=== PATIENT | male | born 1970 | race Caucasian/White ===

== ENCOUNTER 2016-12-05 15:57 | Inpatient (IN) | payer MEDICAID ==
[2016-12-05] MEDS ORDERED: RX INFO: IV CONTRAST WAS GIVEN 1 EACH MISC MISCELLANE PRN (16:13)
[2016-12-05] MEDS ORDERED: ONDANSETRON 4 MG/2 ML VIAL IVP STA (16:13)
[2016-12-05] MEDS ORDERED: SODIUM CHLORIDE 0.9% 1,000 ML IV STA ×2 (16:13→18:04)
[2016-12-05] MEDS ORDERED: HYDROmorphone 1 MG/ML 1 ML SYRINGE IVP STA ×2 (16:13→17:57)
--- NOTE | 2016-12-05 16:17 | ED ---
Abdominal Pain HPI - General Source: patient, RN notes reviewed Mode of arrival: ambulatory Limitations: no limitations <Brenda Canlaes - Last Filed: 12/05/16 18:07> <Bubba Duvall - Last Filed: 12/05/16 18:19> - General Chief Complaint: Abdominal Pain Stated Complaint: Abd Pain Time Seen by Provider: 12/05/16 16:08 - History of Present Illness Initial Comments: 46 yo male presents to the ER with cc of left lower quadrant abdominal pain. Patient states it developed last night. He has been eating increased menses and popcorn. The patient states he hasn't had any nausea or vomiting. He denies any diarrhea he does have 2 bowel movements today. He denies any blood. Denies any history of this. Patient has had his appendix removed in the past but no other abdominal problems. The patient has not had a fever. Patient states she was concerned due to his continued pain but should be evaluated. Patient denies any recent fever, chills, shortness of breath, chest pain, back pain, nausea vomiting, numbness or tingling, dysuria or hematuria, constipation or diarrhea, headaches or visual changes, or any other current symptoms. (Brenda Canales) - Related Data Home Medications Medication Instructions Recorded Confirmed Acetaminophen Tab [Tylenol Tab] 1,500 mg PO Q6HR PRN 12/05/16 12/05/16 Cholecalciferol [Vitamin D3] 1,000 unit PO DAILY 12/05/16 12/05/16 Pantoprazole Sodium 40 mg PO DAILY 12/05/16 12/05/16 Allergies Allergy/AdvReac Type Severity Reaction Status Date / Time No Known Allergies Allergy Verified 12/05/16 16:21 Review of Systems ROS Other: All systems not noted in ROS Statement are negative. <Brenda Canales - Last Filed: 12/05/16 18:07> ROS Other: All systems not noted in ROS Statement are negative. <Bubba Duvall - Last Filed: 12/05/16 18:19> ROS Statement: Those systems with pertinent positive or pertinent negative responses have been documented in the HPI. Past Medical History Past Medical History: GERD/Reflux History of Any Multi-Drug Resistant Organisms: None Reported Past Surgical History: Appendectomy Additional Past Surgical History / Comment(s): (L) elbow surgery. bilateral carpel tunnel surgery. Past Psychological History: No Psychological Hx Reported Smoking Status: Never smoker Past Alcohol Use History: Occasional Past Drug Use History: None Reported <Brenda Canales - Last Filed: 12/05/16 18:07> General Exam Limitations: no limitations <Brenda Canales - Last Filed: 12/05/16 18:07> <Bubba Duvall - Last Filed: 12/05/16 18:19> - General Exam Comments Initial Comments: General: The patient is awake and alert, in no distress, and does not appear acutely ill. Eye: Pupils are equal, round and reactive to light, extra-ocular movements are intact; there is normal conjunctiva bilaterally. No signs of icterus. Ears, nose, mouth and throat: There are moist mucous membranes and no oral lesions. Neck: The neck is supple, there is no tenderness. Cardiovascular: There is a regular rate and rhythm. No murmur, rub or gallop is appreciated. Respiratory: Lungs are clear to auscultation, respirations are non-labored, breath sounds are equal. No wheezes, stridor, rales, or rhonchi. Gastrointestinal: Soft, non-distended, tender left lower quadrant of the abdomen without masses or organomegaly noted. There is rebound and guarding present. No CVA tenderness. Bowel sounds are unremarkable. Back: There is no tenderness to palpation in the midline. There is no obvious deformity. No rashes noted. Musculoskeletal: Normal ROM, no tenderness, There is no pedal edema. There is no calf tenderness or swelling. Sensation intact. Pulses equal bilaterally 2+. Neurological: CN II-XII intact, There are no obvious motor or sensory deficits. Coordination appears grossly intact. Speech is normal. Skin: Skin is warm and dry and no rashes or lesions are noted. Psychiatric: Cooperative, appropriate mood & affect, normal judgment. (Brenda Canales) Medical Decision Making - Lab Data Result diagrams: 12/05/16 16:30 12/05/16 16:30 - Radiology Data Radiology results: report reviewed, image reviewed <Brenda Canales - Last Filed: 12/05/16 18:07> - Lab Data Result diagrams: 12/05/16 16:30 12/05/16 16:30 <Bubba Duvall - Last Filed: 12/05/16 18:19> - Medical Decision Making 46-year-old male presents to emergency Department chief complaint of left lower quadrant abdominal pain. At this time patient's CAT scan lab work is reviewed. This time there is concern for localized infection in addition to a colitis. We'll start the patient on IV antibiotics and IV fluids. This time we will admit the patient. This discussed the patient is in agreement with the plan. ( Brenda Canales) I reviewed the patient's labs. 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 The CAT scan suggests ileocolic meningitis possible omental infarct and consideration with focal colitis. The case discussed with on-call surgeon Dr. Palacios. Patient be placed on Levaquin and Flagyl. With IV fluids, antibiotics, kept nothing by mouth . Dr. Duvall (Bubba Duvall) - Lab Data Lab Results 12/05/16 12/05/16 12/05/16 Range/Units 16:30 16:30 16:30 WBC 10.2 (3.8-10.6) k/uL RBC 5.59 (4.30-5.90) m/uL Hgb 16.0 (13.0-17.5) gm/dL Hct 48.5 (39.0-53.0) % MCV 86.7 (80.0-100.0) fL MCH 28.5 (25.0-35.0) pg MCHC 32.9 (31.0-37.0) g/dL RDW 13.7 (11.5-15.5) % Plt Count 341 (150-450) k/uL Neutrophils % 59 % Lymphocytes % 26 % Monocytes % 6 % Eosinophils % 5 % Basophils % 1 % Neutrophils # 6.1 (1.3-7.7) k/uL Lymphocytes # 2.7 (1.0-4.8) k/uL Monocytes # 0.7 (0-1.0) k/uL Eosinophils # 0.5 (0-0.7) k/uL Basophils # 0.1 (0-0.2) k/uL Sodium 139 (137-145) mmol/L Potassium 4.6 (3.5-5.1) mmol/L Chloride 106 (98-107) mmol/L Carbon Dioxide 21 L (22-30) mmol/L Anion Gap 12 mmol/L BUN 18 (9-20) mg/dL Creatinine 0.90 (0.66-1.25) mg/dL Est GFR (MDRD) Af Amer >60 (>60 ml/min/1.73 sqM) Est GFR (MDRD) Non-Af >60 (>60 ml/min/1.73 sqM) Glucose 98 (74-99) mg/dL Calcium 9.3 (8.4-10.2) mg/dL Total Bilirubin 0.7 (0.2-1.3) mg/dL AST 34 (17-59) U/L ALT 52 (21-72) U/L Alkaline Phosphatase 68 (38-126) U/L Total Protein 7.3 (6.3-8.2) g/dL Albumin 4.4 (3.5-5.0) g/dL Amylase 36 (30-110) U/L Lipase 145 (23-300) U/L Urine Color Light Yellow Urine Appearance Clear (Clear) Urine pH 5.5 (5.0-8.0) Ur Specific Froid 1.012 (1.001-1.035) Urine Protein Negative (Negative) Urine Glucose (UA) Negative (Negative) Urine Ketones Negative (Negative) Urine Blood Negative (Negative) Urine Nitrate Negative (Negative) Urine Bilirubin Negative (Negative) Urine Urobilinogen <2.0 (<2.0) mg/dL Ur Leukocyte Esterase Negative (Negative) Disposition Time of Disposition: 18:05 Decision Date: 12/05/16 Decision Time: 18:05 <Brenda Canales - Last Filed: 12/05/16 18:07> <Bubba Duvall - Last Filed: 12/05/16 18:19> Clinical Impression: Intractable left lower quadrant abdominal pain, Colitis Disposition: ADMITTED IP TO THIS [facility] Condition: Stable Referrals: Genevieve Kenyon MD [Primary Care Provider] - 1-2 days
[2016-12-05 16:46] LABS: Basophils # (A) 0.1 k/uL (0-0.2); Basophils % (A) 1 %; CH 29.2; CHCM 33.8; Eosinophils # (A) 0.5 k/uL (0-0.7); Eosinophils % (A) 5 %; HCT 48.5 % (39.0-53.0); HDW 2.76; Luc # (Auto) 0.22; Luc % (Auto) 2; Lymphocytes # (A) 2.7 k/uL (1.0-4.8); Lymphocytes % (A) 26 %; MCH 28.5 pg (25.0-35.0); MCHC 32.9 g/dL (31.0-37.0); MCV 86.7 fL (80.0-100.0); Mean Platelet Volume 6.3; Monocytes # (A) 0.7 k/uL (0-1.0); Monocytes % (A) 6 %; Neutrophils # (A) 6.1 k/uL (1.3-7.7); Neutrophils % (A) 59 %; RBC 5.59 m/uL (4.30-5.90); RDW 13.7 % (11.5-15.5); WBC 10.2 k/uL (3.8-10.6); WBC (Perox) 10.69
[2016-12-05 16:51] LABS: Appearance,Urine Clear (Clear); Bilirubin,Urine Negative (Negative); Glucose,Urine (UA) Negative (Negative); Ketones,Urine Negative (Negative); Leukocyte Esterase,Urine Negative (Negative); Nitrite,Urine Negative (Negative); PH, Urine 5.5 (5.0-8.0); Protein,Urine Negative (Negative); Specific Gravity,Urine 1.012 (1.001-1.035); UA Billing (MACRO vs. MICRO) CHEM; Urobilinogen,Urine <2.0 mg/dL (<2.0)
[2016-12-05 16:56] LABS: ALT 52 U/L (21-72); AST 34 U/L (17-59); Alkaline Phosphatase 68 U/L (38-126); Amylase 36 U/L (30-110); Anion Gap 12 mmol/L; Blood Urea Nitrogen 18 mg/dL (9-20); Calcium 9.3 mg/dL (8.4-10.2); Carbon Dioxide 21 mmol/L (22-30); Chloride 106 mmol/L (98-107); Glucose 98 mg/dL (74-99); Non-African American GFR(MDRD) >60 (>60 ml/min/1.73 sqM); Potassium 4.6 mmol/L (3.5-5.1); Sodium 139 mmol/L (137-145); Total Bilirubin 0.7 mg/dL (0.2-1.3); Total Protein 7.3 g/dL (6.3-8.2)
--- NOTE | 2016-12-05 17:52 | CT ---
EXAMINATION TYPE: CT abdomen pelvis w con DATE OF EXAM: 12/05/2016 5:22 PM COMPARISON: NONE HISTORY: 46-year-old male with left lower quadrant pain. TECHNIQUE: Contiguous axial scanning of the abdomen and pelvis following administration of 100 ml Omn ipaque 300 IV contrast. Delayed images through the kidneys and coronal/sagittal reconstructions perf ormed. CT DLP: 1088.5 mGycm Automated exposure control for dose reduction was used. FINDINGS: Heart is normal size without pericardial effusion. Lung bases clear without pleural effusion. No focal liver lesion or biliary ductal dilatation. Portal venous system is patent. Adrenal glands, gallbladder, kidneys, spleen, pancreas within normal limits. Slightly malrotated righ t kidney. Some fluid-filled small bowel loops in the left upper and midabdomen measuring up to 3.5 cm in calibe r, mildly dilated. There is no transition point. No free fluid or free air. Tiny fatty umbilical hernia. Numerous scattered nonenlarged mid and left abdominal mesenteric lymph nodes are probably reactive. There is focal moderate fat stranding anterior to the lower descending colon, axial image 51. No sign ificant colonic wall thickening or diverticular change is identified. Bladder partially urine distended. Prostate gland is enlarged at 5.3 cm wide. Patulous bilateral ingu inal canals. No pelvic lymphadenopathy seen. Bones: No osseous destructive process. IMPRESSION: 1. FOCAL INFLAMMATION IN THE LEFT MID ABDOMINAL FAT ANTERIOR TO THE LOWER DESCENDING COLON AND LATERA L TO SOME SMALL BOWEL LOOPS. THERE IS AN ADJACENT REGIONAL SMALL BOWEL ILEUS. 2. THE EXACT ETIOLOGY OF THE INFLAMMATION IS UNCERTAIN THERE IS NO CORRESPONDING COLONIC WALL THIC KENING OR DIVERTICULAR CHANGE. EPIPLOIC APPENDAGITIS AND OMENTAL INFARCT ARE OTHER CONSIDERATIONS IN ADDITION TO FOCAL COLITIS. 3. NO ABSCESS OR FREE AIR. 4. 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
[2016-12-05] MEDS ORDERED: NALOXONE 0.4 MG/ML 1 ML VIAL IV PRN (18:05)
[2016-12-05] MEDS ORDERED: ACETAMINOPHEN TAB 325 MG TAB PO PRN (18:05)
[2016-12-05] MEDS ORDERED: ONDANSETRON 4 MG/2 ML VIAL IVP PRN (18:05)
[2016-12-05] MEDS ORDERED: LEVOFLOXACIN 750MG-D5W PMX 750 MG in DEXTROSE/WATER 1 150ML.BAG IVPB STA (18:06)
[2016-12-05] MEDS ORDERED: metroNIDAZOLE-NS PMX 500 MG in SALINE 1 100ML.BAG IVPB STA (18:06)
[2016-12-05 19:49] VITALS: BMI 36.0
[2016-12-05] MEDS: HYDROmorphone 1 MG/ML 1 ML SYRINGE IV PRN ×2 (20:34→23:50)
[2016-12-05] MEDS: metroNIDAZOLE-NS PMX 500 MG in SALINE 1 100ML.BAG IVPB SCH (23:53)
[2016-12-06] MEDS ORDERED: METOCLOPRAMIDE 5 MG/ML 2 ML VIAL IVP PRN (05:35)
[2016-12-06 06:35] LABS: Basophils # (A) 0.1 k/uL (0-0.2); Basophils % (A) 1 %; CH 28.9; CHCM 32.9; Eosinophils # (A) 0.2 k/uL (0-0.7); Eosinophils % (A) 1 %; HCT 45.2 % (39.0-53.0); HGB 14.5 gm/dL (13.0-17.5); Luc # (Auto) 0.16; Luc % (Auto) 1; Lymphocytes # (A) 1.2 k/uL (1.0-4.8); Lymphocytes % (A) 10 %; MCH 28.4 pg (25.0-35.0); MCHC 32.2 g/dL (31.0-37.0); MCV 88.4 fL (80.0-100.0); Mean Platelet Volume 6.1; Monocytes # (A) 0.5 k/uL (0-1.0); Monocytes % (A) 4 %; Neutrophils # (A) 10.6 k/uL (1.3-7.7); Neutrophils % (A) 84 %; RBC 5.11 m/uL (4.30-5.90); RDW 13.8 % (11.5-15.5); WBC 12.7 k/uL (3.8-10.6); WBC (Perox) 13.11
[2016-12-06 07:00] LABS: ALT 44 U/L (21-72); AST 24 U/L (17-59); Alkaline Phosphatase 59 U/L (38-126); Anion Gap 11 mmol/L; Blood Urea Nitrogen 15 mg/dL (9-20); Calcium 8.7 mg/dL (8.4-10.2); Carbon Dioxide 21 mmol/L (22-30); Chloride 106 mmol/L (98-107); Glucose 113 mg/dL (74-99); Non-African American GFR(MDRD) >60 (>60 ml/min/1.73 sqM); Potassium 4.7 mmol/L (3.5-5.1); Sodium 138 mmol/L (137-145); Total Bilirubin 0.8 mg/dL (0.2-1.3); Total Protein 6.4 g/dL (6.3-8.2)
[2016-12-06] MEDS: metroNIDAZOLE-NS PMX 500 MG in SALINE 1 100ML.BAG IVPB SCH ×3 (08:54→23:43)
[2016-12-06] MEDS: PANTOPRAZOLE 40 MG TABLET PO SCH (08:54)
[2016-12-06] MEDS ORDERED: ONDANSETRON 4 MG/2 ML VIAL IVP PRN (08:58)
[2016-12-06 14:43] VITALS: RESP 16
--- NOTE | 2016-12-06 15:34 | P.HPIM ---
History of Present Illness H&P Date: 12/06/16 Chief Complaint: Abdominal pain 46-year-old gentleman who presented on the day of admission to the emergency room with a sudden onset of left lower quadrant abdominal pain. Patient stated developed the night before. He stated he had been eating popcorn. He did not have any nausea vomiting. Patient stated he had 2 loose stools. He stated there were no blood noted in the stool. Patient stated that he has had his appendix removed in the past. Patient gives no other significant past medical or surgical history. Patient states the pain was intolerable. He had not experienced prior pain. Patient stated he became concerned and admitted to the emergency room for further evaluation. Patient denied any fever chills. In the emergency room the white count was 10 afebrile in the emergency room a CAT scan of the abdomen and pelvis with contrast was obtained. It showed no abscess or free air it did show inflammation uncertain if there is corresponding : Wall thickening or diverticular changes colitis would be in the differential diagnosis Patient continues to report having tenderness to the right lower quadrant no nausea no vomiting no stooling Review of Systems Essentially unremarkable except as mentioned in the present illness Past Medical History Past Medical History: GERD/Reflux History of Any Multi-Drug Resistant Organisms: None Reported Past Surgical History: Appendectomy Additional Past Surgical History / Comment(s): (L) elbow surgery. bilateral carpel tunnel surgery. Past Anesthesia/Blood Transfusion Reactions: No Reported Reaction Past Psychological History: No Psychological Hx Reported Smoking Status: Never smoker Past Alcohol Use History: Occasional Past Drug Use History: None Reported - Past Family History Mother Additional Family Medical History / Comment(s): open heart surgery Father Family Medical History: Myocardial Infarction ([place]) Medications and Allergies Home Medications Medication Instructions Recorded Confirmed Type Acetaminophen Tab [Tylenol Tab] 1,500 mg PO Q6HR PRN 12/05/16 12/05/16 History Cholecalciferol [Vitamin D3] 1,000 unit PO DAILY 12/05/16 12/05/16 History Pantoprazole Sodium 40 mg PO DAILY 12/05/16 12/05/16 History Allergies Allergy/AdvReac Type Severity Reaction Status Date / Time No Known Allergies Allergy Verified 12/05/16 16:21 Physical Exam Vitals: Vital Signs Temp Pulse Pulse Resp BP BP Pulse Ox 12/06/16 14:43 97.9 F 74 16 120/78 96 12/06/16 07:00 98.3 F 75 18 127/71 97 12/06/16 04:16 78 16 129/77 95 12/06/16 01:00 98.1 F 79 16 113/59 98 12/05/16 19:59 97.7 F 65 16 142/89 97 12/05/16 18:33 98.3 F 64 18 145/67 97 12/05/16 18:20 64 18 145/67 97 Intake and Output 12/06/16 12/06/16 12/06/16 06:59 14:59 22:59 Intake Total 1200 1150 Balance 1200 1150 Intake: IV 1200 1150 Sodium Chloride 0.9% 1, 1200 1050 000 ml @ 150 mls/hr IV . Q6H40M STA Rx#:[id number] metroNIDAZOLE-NS PMX 500 100 mg In Saline 1 100ml.bag @ 100 mls/hr IVPB ONCE STA Rx#:[id number] Other: # Voids 2 GENERAL APPEARANCE: 46-year-old male patient is alert, oriented, in no acute distress. Resting in bed VITAL SIGNS: Reviewed HEENT: Head is normocephalic and atraumatic. Pupils are equal and reactive. The nares are patent. Oropharynx is clear without lesions. NECK: Supple without lymphadenopathy. Traches midline. HEART: S1, S2. Regular rate and rhythm. No murmur noted LUNGS: No crackles or wheezes are heard. Adequate air movement no shortness of breath ABDOMEN: Soft, slight tenderness left lower quadrant nondistended with good bowel sounds. No peritoneal signs. No palpable organomegaly or masses. EXTREMITIES: Normal skin color and turgor. No cyanosis, rash, ulceration, clubbing or edema. Radial pedal pulses are 2/4 bilaterally. NEUROLOGICAL: No focal deficits. Strength and sensation are grossly intact. Results CBC & Chem 7: 12/06/16 06:22 12/06/16 06:22 Labs: Abnormal Lab Results - Last 24 Hours (Table) 12/06/16 12/06/16 Range/Units 06:22 06:22 WBC 12.7 H (3.8-10.6) k/uL Neutrophils # 10.6 H (1.3-7.7) k/uL Carbon Dioxide 21 L (22-30) mmol/L Glucose 113 H (74-99) mg/dL Thrombosis Risk Factor Assmnt - Choose All That Apply Any of the Below Risk Factors Present?: Yes Each Factor Represents 1 point: Age 41-60 years, Obesity (BMI >25) Other Risk Factors: No Thrombosis Risk Factor Assessment Total Risk Factor Score: 2 Thrombosis Risk Factor Assessment Level: Low Risk Assessment and Plan Plan: Impression Present on admission abdominal pain nausea vomiting sudden onset suspect due to colitis Present on admission leukocytosis suspect reactive History of esophageal reflex disease Plan Repeat labs in the morning Clear liquid diet Toradol 30 IV every 6 [id number] Continue with Flagyl and Levaquin as ordered IV fluid at 75 an hour DVT and GI prophylaxis Further recommendations pending The above dictated assessment and findings were discussed with dr knapp . Impression and the plan of care have been dictated as directed. Sonja Sparrow nurse practitioner acting as a scribe for dr knapp
[2016-12-06] MEDS: CHOLECALCIFEROL 1,000 UNIT TAB PO SCH (16:24)
[2016-12-06] MEDS: KETOROLAC 30 MG/ML 1 ML VIAL IVP SCH ×3 (16:24→20:57)
[2016-12-06] MEDS: SODIUM CHLORIDE 0.9% 1,000 ML IV SCH ×2 (19:05→20:59)
[2016-12-06] MEDS: HYDROcodone/APAP 5-325MG 1 EACH TAB PO PRN (22:10)
[2016-12-06] MEDS ORDERED: LEVOFLOXACIN 750MG-D5W PMX 750 MG in DEXTROSE/WATER 1 150ML.BAG IVPB SCH (23:00)
[2016-12-07] MEDS: HYDROcodone/APAP 5-325MG 1 EACH TAB PO PRN (04:43)
[2016-12-07] MEDS: KETOROLAC 30 MG/ML 1 ML VIAL IVP SCH ×2 (05:06→11:43)
[2016-12-07 07:59] VITALS: BP 106/62; PULSE 60; TEMP 97.6
[2016-12-07] MEDS: CHOLECALCIFEROL 1,000 UNIT TAB PO SCH (08:21)
[2016-12-07] MEDS: PANTOPRAZOLE 40 MG TABLET PO SCH (08:21)
[2016-12-07] MEDS: metroNIDAZOLE-NS PMX 500 MG in SALINE 1 100ML.BAG IVPB SCH (08:21)
[2016-12-07 08:44] LABS: Basophils # (A) 0.1 k/uL (0-0.2); Basophils % (A) 1 %; CH 29.4; CHCM 33.5; Eosinophils # (A) 0.4 k/uL (0-0.7); Eosinophils % (A) 5 %; HCT 44.5 % (39.0-53.0); HDW 2.73; HGB 14.5 gm/dL (13.0-17.5); Luc # (Auto) 0.13; Luc % (Auto) 1; Lymphocytes # (A) 2.2 k/uL (1.0-4.8); Lymphocytes % (A) 25 %; MCH 28.6 pg (25.0-35.0); MCHC 32.5 g/dL (31.0-37.0); MCV 88.2 fL (80.0-100.0); Mean Platelet Volume 7.1; Monocytes # (A) 0.7 k/uL (0-1.0); Monocytes % (A) 8 %; Neutrophils # (A) 5.3 k/uL (1.3-7.7); Neutrophils % (A) 60 %; RBC 5.05 m/uL (4.30-5.90); RDW 13.7 % (11.5-15.5); WBC 8.8 k/uL (3.8-10.6); WBC (Perox) 8.69
[2016-12-07 09:02] LABS: ALT 43 U/L (21-72); AST 19 U/L (17-59); Alkaline Phosphatase 51 U/L (38-126); Anion Gap 7 mmol/L; Blood Urea Nitrogen 12 mg/dL (9-20); Carbon Dioxide 29 mmol/L (22-30); Chloride 105 mmol/L (98-107); Glucose 89 mg/dL (74-99); Non-African American GFR(MDRD) >60 (>60 ml/min/1.73 sqM); Potassium 4.6 mmol/L (3.5-5.1); Sodium 141 mmol/L (137-145); Total Bilirubin 0.7 mg/dL (0.2-1.3); Total Protein 6.1 g/dL (6.3-8.2)
[2016-12-07] MEDS: SODIUM CHLORIDE 0.9% 1,000 ML IV SCH (11:43)
--- NOTE | 2016-12-07 12:48 | P.DS ---
Providers Date of admission: 12/05/16 18:19 Expected date of discharge: 12/07/16 Attending physician: Ant Knapp Primary care physician: Genevieve [facility] Course: 46-year-old gentleman who presented on the day of admission to the emergency room with a sudden onset of left lower quadrant abdominal pain. Patient stated developed the night before. He stated he had been eating popcorn. He did not have any nausea vomiting. Patient stated he had 2 loose stools. He stated there were no blood noted in the stool. Patient stated that he has had his appendix removed in the past. Patient gives no other significant past medical or surgical history. Patient states the pain was intolerable. He had not experienced prior pain. Patient stated he became concerned and admitted to the emergency room for further evaluation. Patient denied any fever chills. In the emergency room the white count was 10 afebrile in the emergency room a CAT scan of the abdomen and pelvis with contrast was obtained. It showed no abscess or free air it did show inflammation uncertain if there is corresponding : Wall thickening or diverticular changes colitis would be in the differential diagnosis On admission continues to report having tenderness to the right lower quadrant no nausea no vomiting no stooling was started on IV hydration with bowel rest. Over the course of hospitalization the diet was able to be advanced on the day of discharge patient tolerated a full diet was felt to be stable and appropriate to proceed with discharge. The white count was down to 8.8. Electrolytes within normal limits AST and ALT were not elevated Impression Present on admission abdominal pain nausea vomiting sudden onset suspect due to colitis Present on admission leukocytosis suspect reactive History of esophageal reflex disease The above dictated assessment and findings were discussed with dr knapp Impression and the plan of care have been dictated as directed. Sonja Sparrow nurse practitioner acting as a scribe for dr knapp Patient Condition at Discharge: Stable Plan - Discharge Summary New Discharge Prescriptions: Levofloxacin [Levaquin] 500 mg PO DAILY #7 tab metroNIDAZOLE [Flagyl] 500 mg PO Q8HR #21 tab Discharge Medication List Acetaminophen Tab [Tylenol Tab] 1,500 mg PO Q6HR PRN 12/05/16 [History] Cholecalciferol [Vitamin D3] 1,000 unit PO DAILY 12/05/16 [History] Pantoprazole Sodium 40 mg PO DAILY 12/05/16 [History] Levofloxacin [Levaquin] 500 mg PO DAILY #7 tab 12/07/16 [Rx] metroNIDAZOLE [Flagyl] 500 mg PO Q8HR #21 tab 12/07/16 [Rx] Follow up Appointment(s)/Referral(s): Genevieve Kenyon MD [Primary Care Provider] - 1-2 days Ant Knapp MD [STAFF PHYSICIAN] - 1 Week Discharge Disposition: HOME SELF-CARE
== END 2016-12-07 14:16 | disposition home or self-care (01) | DRG 392 ==
LOC: EC 15:57 → 3SUR 18:19
PROVIDERS: ADMIT Surgery; ATTEND Surgery
DX: K52.9 Noninfective gastroenteritis and colitis, unspecified (principal); D72.829 Elevated white blood cell count, unspecified; K21.9 Gastro-esophageal reflux disease without esophagitis; Z82.49 Family history of ischemic heart disease and other diseases of the circulatory system; Z79.899 Other long term (current) drug therapy; Z90.49 Acquired absence of other specified parts of digestive tract
CPT/HCPCS: 36415; 74177; 80053; 81003; 82150; 83605; 83690; 85025; 87040; 96361; 96375; 96376; 99285

== ENCOUNTER → 2016-12-17 | Outpatient (CLI) | payer MEDICAID ==
[2016-12-17 16:38] LABS: CH 28.8; CHCM 33.1; HCT 46.3 % (39.0-53.0); HDW 2.69; MCH 28.2 pg (25.0-35.0); MCHC 32.3 g/dL (31.0-37.0); MCV 87.3 fL (80.0-100.0); Mean Platelet Volume 6.1; RDW 12.9 % (11.5-15.5); WBC 9.1 k/uL (3.8-10.6)
== END | disposition home or self-care (01) ==
LOC: LABWHC1 16:03
PROVIDERS: ATTEND Surgery
DX: K52.9 Noninfective gastroenteritis and colitis, unspecified (principal)
CPT/HCPCS: 36415; 85027

== ENCOUNTER → 2016-12-24 | Outpatient (CLI) | payer MEDICAID | END | disposition home or self-care (01) | LOC: LABWHC1 15:50 | PROVIDERS: ATTEND Surgery | DX: Z53.9 Procedure and treatment not carried out, unspecified reason (principal) ==

== ENCOUNTER → 2017-03-01 | Outpatient (CLI) | payer MEDICAID ==
--- NOTE | 2017-03-01 12:09 | ECHOF ---
Referral Reason:Sob [id number] MEASUREMENTS -------- HEIGHT: 162.6 cm WEIGHT: 95.7 kg BP: 136/83 RVIDd: 2.6 cm (< 3.3) IVSd: 1.2 cm (0.6 - 1.1) LVIDd: 4.5 cm (3.9 - 5.3) LVPWd: 1.2 cm (0.6 - 1.1) IVSs: 1.6 cm LVIDs: 3.3 cm LVPWs: 1.4 cm LA Diam: 3.5 cm (2.7 - 3.8) LAESV Index (A-L): 20.42 ml/m Ao Diam: 3.6 cm (2.0 - 3.7) AV Cusp: 2.6 cm (1.5 - 2.6) MV EXCURSION: 20.824 mm (> 18.000) MV EF SLOPE: 75 mm/s (70 - 150) EPSS: 0.5 cm MV E Donta: 0.58 m/s MV DecT: 217 ms MV A Donta: 0.41 m/s MV E/A Ratio: 1.43 FINDINGS -------- Sinus rhythm. This was a technically good study. The left ventricular size is normal. There is borderline concentric left ventricular hypertrophy. Overall left ventricular systolic function is normal with, an EF between 60 - 65 %. The right ventricle is normal in size. Normal LA size by volume 22+/-6 ml/m2. The right atrium is normal in size. There is mild aortic valve sclerosis. The mitral valve is normal. The tricuspid valve appears structurally normal. Trace/mild (physiologic) pulmonic regurgitation. The aortic root size is normal. Normal inferior vena cava with normal inspiratory collapse consistent with estimated right atrial pressure of 5 mmHg. The pericardium is normal. CONCLUSIONS -------- 1. Sinus rhythm. 2. The mitral valve is normal. 3. The tricuspid valve appears structurally normal. 4. Trace/mild (physiologic) pulmonic regurgitation. 5. The aortic root size is normal. 6. Normal inferior vena cava with normal inspiratory collapse consistent with estimated right atrial pressure of 5 mmHg. 7. The pericardium is normal. 8. This was a technically good study. 9. The left ventricular size is normal. 10. There is borderline concentric left ventricular hypertrophy. 11. Overall left ventricular systolic function is normal with, an EF between 60 - 65 %. 12. The right ventricle is normal in size. 13. Normal LA size by volume 22+/-6 ml/m2. 14. The right atrium is normal in size. 15. There is mild aortic valve sclerosis. [employer] MERCHANDISER: Adrianna Garcia RDCS
== END | disposition home or self-care (01) ==
LOC: RADNMMAIN 09:02
PROVIDERS: ATTEND Internal Medicine Clinical Cardiac Electrophysiology
DX: I37.1 Nonrheumatic pulmonary valve insufficiency (principal); I35.8 Other nonrheumatic aortic valve disorders
CPT/HCPCS: 93306

== ENCOUNTER → 2017-03-02 | Outpatient (CLI) | payer MEDICAID ==
--- NOTE | 2017-03-02 11:57 | EST ---
DATE OF SERVICE: 03/02/2017 AGE: 46Y SEX: M HT: 5'4" WT: 211 lbs. Protocol Antonio: X Other: Cardiolite Stress Stage: 4 Dur. of Exercise: 12:15 *Heart Rate Blood Pressure *Rest: 72 Rest: 130/97 * *Max. Achieved: 162 Maximum BP: 195/66 85% PMHR: 150 100% PMHR: 176 *METS: 12.3 INDICATIONS: Family history. MEDICATIONS: Prilosec. Baseline EKG revealed normal sinus rhythm without significant ST-T changes. Patient walked for 12 minutes 15 seconds, achieved a maximum heart rate of 162 beats per minute well above 85% of predicted maximum. Developed fatigue and some shortness of breath, but did not have any angina. There was no arrhythmia of significance, one isolated PVC was noted. EKG did not reveal any ST segment changes to indicate ischemia. IMPRESSION: 1. By EKG criteria, this is a negative stress test with excellent exercise capacity. 2. The nuclear scan results, which are more pertinent, will be reported by the radiologist.
--- NOTE | 2017-03-02 12:26 | NM ---
EXAMINATION TYPE: NM stress cardiolite complete DATE OF EXAM: 03/02/2017 11:07 AM COMPARISON: NONE HISTORY: Shortness of breath, family history coronary artery disease TECHNIQUE: After the intravenous administration of 10.5 mCi Tc 99m Sestamibi - Rest images obtained 45 minutes post injection. The patient exercised using a ENMANUEL protocol and 1 minute prior to peak exercise was injected with 27 mCi Tc 99m Sestamibi - Stress images obtained 10 minutes post injection . Patient achieved greater than 85% predicted maximal heart rate. FINDINGS: Targeted heart rate was achieved during performance of the study. Review of stress and rest SPECT eulalia ges demonstrates no distinct perfusion abnormality. Gated analysis shows normal wall motion with an estimated left ventricular ejection fraction of 66 %. IMPRESSION: No stress-induced left ventricular myocardial ischemia is evident.
== END ==
LOC: RADNMMAIN 08:23
PROVIDERS: ATTEND Internal Medicine Clinical Cardiac Electrophysiology
DX: R06.02 Shortness of breath (principal); E78.5 Hyperlipidemia, unspecified
CPT/HCPCS: 93017; 78452; A9500

== ENCOUNTER 2017-04-14 07:54 | Emergency (ER) | payer MEDICAID ==
[2017-04-14 07:58] VITALS: BP 154/81; PULSE 76; RESP 18; TEMP 97.6
--- NOTE | 2017-04-14 08:30 | ED ---
General Adult HPI - General Chief complaint: Back Pain/Injury Stated complaint: SCIATICA PAIN Time Seen by Provider: 04/14/17 08:11 Source: patient, family, RN notes reviewed Mode of arrival: wheelchair Limitations: no limitations - History of Present Illness Initial comments: Patient is a 46 -year-old male who presents emergency room today with a chief complaint of pain in the left buttocks radiate down the back of the leg is worse with certain movements. He does admit that pain started late last night. States that he has not tried any Tylenol or Motrin. He denies any bowel or bladder incontinence retention. Denies any saddle anesthesia. Denies any other complaints. Patient denies any recent fever, chills, shortness of breath, chest pain, back pain, abdominal pain, nausea or vomiting, dysuria or hematuria , constipation or diarrhea, headaches or visual changes, or any other complaints. - Related Data Home Medications Medication Instructions Recorded Confirmed Pantoprazole Sodium 40 mg PO DAILY 12/05/16 12/05/16 Previous Rx's Medication Instructions Recorded Cyclobenzaprine [Flexeril] 10 mg PO TID #20 tab 04/14/17 Dexamethasone 0.75 mg PO DIRECTED #12 tablet 04/14/17 Ibuprofen [Motrin] 800 mg PO Q8HR #30 tab 04/14/17 Allergies Allergy/AdvReac Type Severity Reaction Status Date / Time No Known Allergies Allergy Verified 04/14/17 08:42 Review of Systems ROS Statement: Those systems with pertinent positive or pertinent negative responses have been documented in the HPI. ROS Other: All systems not noted in ROS Statement are negative. Past Medical History Past Medical History: GERD/Reflux History of Any Multi-Drug Resistant Organisms: None Reported Past Surgical History: Appendectomy Additional Past Surgical History / Comment(s): (L) elbow surgery. bilateral carpel tunnel surgery. Past Anesthesia/Blood Transfusion Reactions: No Reported Reaction Past Psychological History: No Psychological Hx Reported Smoking Status: Never smoker Past Alcohol Use History: Occasional Past Drug Use History: None Reported - Past Family History Mother Additional Family Medical History / Comment(s): open heart surgery Father Family Medical History: Myocardial Infarction ([place]) General Exam - General Exam Comments Initial Comments: General: The patient is awake and alert, in no distress, and does not appear acutely ill. Eye: Pupils are equal, round and reactive to light, extra-ocular movements are intact. No nystagmus. There is normal conjunctiva bilaterally. No signs of icterus. Ears, nose, mouth and throat: There are moist mucous membranes and no oral lesions. Neck: The neck is supple, there is no tenderness or JVD. Cardiovascular: There is a regular rate and rhythm. No murmur, rub or gallop is appreciated. Respiratory: Lungs are clear to auscultation, respirations are non-labored, breath sounds are equal. No wheezes, stridor, rales, or rhonchi. Musculoskeletal: Normal ROM, no tenderness. Strength 5/5. Sensation intact. Pulses equal bilaterally 2+. Neurological: A&O x 3. CN II-XII intact, There are no obvious motor or sensory deficits. Coordination appears grossly intact. Speech is normal. Skin: Skin is warm and dry and no rashes or lesions are noted. Psychiatric: Cooperative, appropriate mood & affect, normal judgment. Limitations: no limitations Course Vital Signs 04/14/17 07:54 Temperature 97.6 F Pulse Rate 76 Respiratory 18 Rate Blood Pressure 154/81 O2 Sat by Pulse 97 Oximetry Medical Decision Making - Medical Decision Making Patient reexamined at this time shows no signs of distress more comfortable after Toradol shot. Will be discharged home with anti-inflammatories, muscle relaxer, steroids for symptoms. Advised that muscle relaxers may make him drowsy. Advised follow-up family doctor symptoms persist for further evaluation possible MRI. Advised return if symptoms increase or worsen or for any other concerns. Disposition Clinical Impression: Lumbar radiculopathy, acute Disposition: HOME SELF-CARE Condition: Good Instructions: Lumbar Radiculopathy (ED) Additional Instructions: Please use medication as discussed. Please be aware muscle relaxant may make you drowsy. Please follow-up with family doctor in the next 2 days of symptoms have not improved. Please return to emergency room if the symptoms increase or worsen or for any other concerns. Prescriptions: Cyclobenzaprine [Flexeril] 10 mg PO TID #20 tab Dexamethasone 0.75 mg PO DIRECTED #12 tablet Ibuprofen [Motrin] 800 mg PO Q8HR #30 tab Referrals: Genevieve Kenyon MD [Primary Care Provider] - 1-2 days Time of Disposition: 09:03
[2017-04-14] MEDS: KETOROLAC 60 MG/2 ML VIAL IM STA (08:39)
--- NOTE | 2017-04-14 08:53 | XR ---
EXAMINATION TYPE: XR lumbar spine 2 or 3V DATE OF EXAM: 04/14/2017 CLINICAL HISTORY: Low back pain radiating down left leg. TECHNIQUE: Frontal and lateral images of the lumbar spine are obtained. COMPARISON: MRI lumbar spine December 11, 2010. FINDINGS: There are 5 lumbar type vertebral bodies identified. The lumbar spine shows satisfactory alignment without evidence of acute fracture or dislocation. Vertebral body heights and disk space he ights are within normal limits. Minimal multilevel anterior spurring L3-L5 levels is present The over lying soft tissue appears unremarkable. IMPRESSION: No acute fracture or dislocation is seen in the lumbar spine. Minimal multilevel anterio r spurring.
== END 2017-04-14 09:20 | disposition home or self-care (01) ==
LOC: EC 07:54
DX: M54.16 Radiculopathy, lumbar region (principal); K21.9 Gastro-esophageal reflux disease without esophagitis; Z79.899 Other long term (current) drug therapy
CPT/HCPCS: 72100; 99283; 96372; J1885

== ENCOUNTER → 2017-04-30 | Outpatient (CLI) | payer MEDICAID ==
--- NOTE | 2017-04-30 11:52 | MR ---
EXAMINATION TYPE: MR lumbar spine wo con DATE OF EXAM: 04/30/2017 COMPARISON: NONE HISTORY: pain, nerve root and plexus disorder, left foot and leg numbness CONTRAST: 0 mL intravenous MultiHance. 12/11/2010 TECHNIQUE: Multiplanar, multisequence images of the lumbar spine were acquired. FINDINGS: Cord terminates at the L1 level. There is mild disc desiccation through the mid to lower l umbar spine. Mild narrowing of disc height may be present. L5-S1: There is a large 0.9 x 0.8 cm hypodensity within the left spinal canal. This is suspected to b e a sequestered disc or disc material extending from the L5-S1 level. Displacement of the residual th ecal sac is evident. There is likely some left S1 nerve root compression. Canal stenosis is present t hrough this level with sequestered disc. L4-L5: No significant disc bulge or disc herniation. No spinal canal stenosis. No foraminal stenosi s. . L3-L4: No significant disc bulge or disc herniation. No spinal canal stenosis. No foraminal stenosi s. . L2-L3: No significant disc bulge or disc herniation. No spinal canal stenosis. No foraminal stenosi s. . L1-L2: No significant disc bulge or disc herniation. No spinal canal stenosis. No foraminal stenosi s. . T12-L1: No significant disc bulge or disc herniation. No spinal canal stenosis. No foraminal stenos is. . IMPRESSION: 1. Interval development of a sequestered disc posterior to the L5 level likely from L5-S1 disc space. This has spinal canal stenosis and suspected left S1 nerve root compression. Correlate with radicula r symptoms.
== END | disposition home or self-care (01) ==
LOC: RADMRIMAIN 06:52
PROVIDERS: ATTEND Family Medicine
DX: M48.07 Spinal stenosis, lumbosacral region (principal); G54.9 Nerve root and plexus disorder, unspecified
CPT/HCPCS: 72148

== ENCOUNTER → 2017-05-02 | Outpatient (CLI) | payer MEDICAID ==
--- NOTE | 2017-05-02 17:47 | US ---
EXAMINATION TYPE: US abdomen limited DATE OF EXAM: 05/02/2017 COMPARISON: NONE CLINICAL HISTORY: M46.1 Sacroiliitis. Patient has painful, palpable lump at left buttock Hypoechoic, non-vascular area visualized at the area of concern measuring 0.9 x 1.1 x 1.0 cm. IMPRESSION: There is demonstration of a 10 mm hypoechoic shadowing area in the area of concern. The appearance is nonspecific. This could be a calcifying mass
== END | disposition home or self-care (01) ==
LOC: RADUSMAIN 17:01
PROVIDERS: ATTEND Family Medicine
DX: M25.9 Joint disorder, unspecified (principal); M46.1 Sacroiliitis, not elsewhere classified
CPT/HCPCS: 76705

== ENCOUNTER → 2017-05-24 | Outpatient (CLI) | payer MEDICAID ==
[2017-05-24 17:09] LABS: Basophils # (A) 0.1 k/uL (0-0.2); Basophils % (A) 1 %; CH 29.1; CHCM 33.9; Eosinophils # (A) 0.2 k/uL (0-0.7); Eosinophils % (A) 2 %; HCT 54.1 % (39.0-53.0); HDW 2.75; HGB 17.9 gm/dL (13.0-17.5); Luc # (Auto) 0.17; Luc % (Auto) 2; Lymphocytes # (A) 2.8 k/uL (1.0-4.8); Lymphocytes % (A) 26 %; MCH 28.5 pg (25.0-35.0); MCHC 33.1 g/dL (31.0-37.0); MCV 86.2 fL (80.0-100.0); Mean Platelet Volume 6.8; Monocytes # (A) 0.6 k/uL (0-1.0); Monocytes % (A) 6 %; Neutrophils # (A) 6.7 k/uL (1.3-7.7); Neutrophils % (A) 64 %; RBC 6.28 m/uL (4.30-5.90); RDW 15.4 % (11.5-15.5); WBC 10.6 k/uL (3.8-10.6); WBC (Perox) 10.41
[2017-05-24 17:19] LABS: INR 1.1 (<1.2)
[2017-05-24 17:20] LABS: ALT 60 U/L (21-72); AST 36 U/L (17-59); Alkaline Phosphatase 57 U/L (38-126); Anion Gap 11 mmol/L; Blood Urea Nitrogen 20 mg/dL (9-20); Calcium 10.2 mg/dL (8.4-10.2); Carbon Dioxide 27 mmol/L (22-30); Chloride 102 mmol/L (98-107); Glucose 82 mg/dL (74-99); Non-African American GFR(MDRD) >60 (>60 ml/min/1.73 sqM); Potassium 4.7 mmol/L (3.5-5.1); Sodium 140 mmol/L (137-145); Total Bilirubin 0.9 mg/dL (0.2-1.3); Total Protein 7.9 g/dL (6.3-8.2)
== END | disposition home or self-care (01) ==
LOC: LABWHC1 16:41
PROVIDERS: ATTEND Neurological Surgery
DX: Z01.812 Encounter for preprocedural laboratory examination (principal); D68.9 Coagulation defect, unspecified
CPT/HCPCS: 36415; 80053; 85025; 85610

== ENCOUNTER 2018-07-24 14:10 | Inpatient (IN) | payer MEDICAID ==
[2018-07-24] MEDS ORDERED: ONDANSETRON 4 MG/2 ML VIAL IVP STA (14:56)
--- NOTE | 2018-07-24 14:59 | ED ---
General Adult HPI - General Chief complaint: Abdominal Pain Stated complaint: abdominal pain Source: patient Mode of arrival: ambulatory Limitations: no limitations - History of Present Illness Initial comments: Dictation was produced using [employer] dictation software. please excuse any grammatical, word or spelling errors. Chief Complaint: 47-year-old male with past medical history of colitis presents with abdominal pain 2 days. History of Present Illness: She said his symptoms began yesterday. He states he does feel nauseated but doesn't have any vomiting. He feels as though his belly is much more distended than usual. Patient has regular bowel movement earlier today. States his pain is severe and diffuse. Chart review shows that patient was admitted in the past for diverticulitis. He does report that he has had twisted bowel. Patient unable to provide more detail. He does state that he is admitted for multiple days of antibiotics. Denies any constitutional symptoms. Patient had appendectomy as a teenager. The ROS documented in this emergency department record has been reviewed and confirmed by me. Those systems with pertinent positive or negative responses have been documented in the HPI. All other systems are other negative and/or noncontributory. - Related Data Home Medications Medication Instructions Recorded Confirmed Pantoprazole Sodium 40 mg PO DAILY 12/05/16 07/24/18 Pedi Multivit No.19/Folic Acid 400 mcg PO DAILY 07/24/18 07/24/18 [Children's Multi-Vit Gummies] Allergies Allergy/AdvReac Type Severity Reaction Status Date / Time No Known Allergies Allergy Verified 07/24/18 14:52 Review of Systems ROS Statement: Those systems with pertinent positive or pertinent negative responses have been documented in the HPI. ROS Other: All systems not noted in ROS Statement are negative. Past Medical History Past Medical History: GERD/Reflux History of Any Multi-Drug Resistant Organisms: None Reported Past Surgical History: Appendectomy Additional Past Surgical History / Comment(s): (L) elbow surgery. bilateral carpel tunnel surgery. Past Anesthesia/Blood Transfusion Reactions: No Reported Reaction Past Psychological History: No Psychological Hx Reported Smoking Status: Never smoker Past Alcohol Use History: Occasional Past Drug Use History: None Reported - Past Family History Mother Additional Family Medical History / Comment(s): open heart surgery Father Family Medical History: Myocardial Infarction ([place]) General Exam - General Exam Comments Initial Comments: PHYSICAL EXAM: General Impression: Alert and oriented x3, acute distress secondary to pain HEENT: Normocephalic atraumatic, extra-ocular movements intact, pupils equal and reactive to light bilaterally, mucous membranes moist. Cardiovascular: Heart regular rate and rhythm, S1&S2 audible, no murmurs, rubs or gallops Chest: Lungs clear to auscultation bilaterally, no rhonchi, no wheeze, no rales Abdomen: Tympanic to percussion, mildly distended, diffusely tender Musculoskeletal: Pulses present and equal in all extremities, no peripheral edema Motor: Power 5/5 bilaterally, no focal deficits noted Neurological: CN II-XII grossly intact, no focal motor or sensory deficits noted Skin: Intact with no visualized rashes Psych: Normal affect and mood Limitations: no limitations Course Vital Signs 07/24/18 14:38 Temperature 99.9 F H Pulse Rate 99 Respiratory 20 Rate Blood Pressure 153/67 O2 Sat by Pulse 97 Oximetry Medical Decision Making - Medical Decision Making ED course: 47-year-old male with chief complaint of abdominal pain. As upon arrival are within acceptable limits.Patient appeared to be in severe distress. Patient given morphine with improvement of symptoms. Laboratory evaluation showed leukocytosis of 12.3. Rest of CBC unremarkable. Coag panel unremarkable. Metabolic panel and lipase are negative. Given degree of symptoms abdominal and pelvis CT was obtained. There is findings to suggest small bowel obstruction with transition point in the right abdomen. Ultrasound was obtained showing cholelithiasis. Given clinical presentation and findings on physical examination of tympany is more likely that patient's symptoms are secondary to small all traction instead of vision is nothing by mouth with scheduled when necessary pain medications. There is some suspicion that patient 's symptoms represent acute cholecystitis given that ultrasound was limited. Patient started on antibiotics. EKG interpretation: Ventricular rate 93, normal sinus rhythm,. Interval 1:30, QRS 82, QTc 440. No OK prolongation, no QTC prolongation, no ST or T-wave changes noted. T-wave inversions noted at 3 and aVF. This EKG is unremarkable. Overall, this EKG is unremarkable - Lab Data Result diagrams: 07/24/18 15:06 07/24/18 15:06 Lab Results 07/24/18 07/24/18 07/24/18 Range/Units 15:06 15:06 15:06 WBC 12.3 H (3.8-10.6) k/uL RBC 5.85 (4.30-5.90) m/uL Hgb 16.4 (13.0-17.5) gm/dL Hct 50.1 (39.0-53.0) % MCV 85.7 (80.0-100.0) fL MCH 28.0 (25.0-35.0) pg MCHC 32.7 (31.0-37.0) g/dL RDW 13.9 (11.5-15.5) % Plt Count 315 (150-450) k/uL Neutrophils % 85 % Lymphocytes % 7 % Monocytes % 5 % Eosinophils % 2 % Basophils % 1 % Neutrophils # 10.4 H (1.3-7.7) k/uL Lymphocytes # 0.9 L (1.0-4.8) k/uL Monocytes # 0.6 (0-1.0) k/uL Eosinophils # 0.2 (0-0.7) k/uL Basophils # 0.1 (0-0.2) k/uL PT 9.7 (9.0-12.0) sec INR 1.0 (<1.2) APTT 24.6 (22.0-30.0) sec Sodium 139 (137-145) mmol/L Potassium 4.6 (3.5-5.1) mmol/L Chloride 104 (98-107) mmol/L Carbon Dioxide 25 (22-30) mmol/L Anion Gap 10 mmol/L BUN 16 (9-20) mg/dL Creatinine 1.15 (0.66-1.25) mg/dL Est GFR (CKD-EPI)AfAm 89 (>60 ml/min/1.73 sqM) Est GFR (CKD-EPI)NonAf 77 (>60 ml/min/1.73 sqM) Glucose 103 H (74-99) mg/dL Calcium 9.7 (8.4-10.2) mg/dL Total Bilirubin 1.1 (0.2-1.3) mg/dL AST 29 (17-59) U/L ALT 45 (21-72) U/L Alkaline Phosphatase 51 (38-126) U/L Total Protein 7.3 (6.3-8.2) g/dL Albumin 4.5 (3.5-5.0) g/dL Lipase 59 (23-300) U/L Disposition Clinical Impression: Abdominal pain Disposition: ADMITTED IP TO THIS HOSP Referrals: Genevieve Kenyon MD [Primary Care Provider] - 1-2 days Decision Time: 16:31
[2018-07-24] MEDS: MORPHINE SULFATE 4 MG/ML SYRINGE IVP PRN (15:10)
[2018-07-24 15:24] LABS: Basophils # (A) 0.1 k/uL (0-0.2); Basophils % (A) 1 %; Eosinophils # (A) 0.2 k/uL (0-0.7); Eosinophils % (A) 2 %; HCT 50.1 % (39.0-53.0); HGB 16.4 gm/dL (13.0-17.5); Lymphocytes # (A) 0.9 k/uL (1.0-4.8); Lymphocytes % (A) 7 %; MCHC 32.7 g/dL (31.0-37.0); MCV 85.7 fL (80.0-100.0); Mean Platelet Volume 6.1; Monocytes # (A) 0.6 k/uL (0-1.0); Monocytes % (A) 5 %; Neutrophils # (A) 10.4 k/uL (1.3-7.7); Neutrophils % (A) 85 %; Platelet Count 315 k/uL (150-450); RBC 5.85 m/uL (4.30-5.90); RDW 13.9 % (11.5-15.5); WBC 12.3 k/uL (3.8-10.6)
[2018-07-24 15:25] LABS: Albumin 4.5 g/dL (3.5-5.0); Calcium 9.7 mg/dL (8.4-10.2); Potassium 4.6 mmol/L (3.5-5.1); Total Bilirubin 1.1 mg/dL (0.2-1.3); Total Protein 7.3 g/dL (6.3-8.2)
[2018-07-24 15:26] LABS: Partial Thromboplastin Time 24.6 sec (22.0-30.0); Prothrombin Time 9.7 sec (9.0-12.0)
--- NOTE | 2018-07-24 15:52 | CT ---
EXAMINATION TYPE: CT abdomen pelvis w con DATE OF EXAM: 07/24/2018 COMPARISON: 12/05/2016 HISTORY: Bloating, belching, distention and pain in abdomen CT DLP: 1193.9 mGycm Automated exposure control for dose reduction was used. CONTRAST: CT scan of the abdomen pelvis is performed with IV Contrast, patient injected with 100 mL of Isovue 3 00. FINDINGS- LUNG BASES- No significant abnormality is appreciated. LIVER/GB- No gross abnormality is appreciated. PANCREAS- No gross abnormality is seen. SPLEEN- No gross abnormality is seen. ADRENALS- No gross abnormality is seen. KIDNEYS/BLADDER- no hydronephrosis nephrolithiasis or renal mass. BOWEL-there are dilated fluid-filled bowel loops which appear to represent small bowel. There appears to be a caliber change of bowel within the right abdomen. The appendix is not visualized with certai nty. LYMPH NODES- No greater than 1cm abdominal or pelvic lymph nodes areappreciated. OSSEOUS STRUCTURES- No significant abnormality is seen. OTHER- aorta of normal caliber. Tiny fat-containing umbilical hernia noted IMPRESSION- 1. There are dilated fluid-filled small bowel loops with an area of localized wall thickening involvi ng the ileum within the right abdomen. There appears to be a change in caliber of the bowel at this l evel. Findings could represent a transition point and possible small bowel obstruction. Correlate cli nically. Ileus or enteritis in the differential diagnosis. Mucosal lesion of the small bowel not excl uded. 2. Appendix not seen with certainty exam nondiagnostic for appendicitis.
--- NOTE | 2018-07-24 16:20 | US ---
EXAMINATION TYPE: US abdomen complete DATE OF EXAM: 07/24/2018 COMPARISON: CT 2018 CLINICAL HISTORY: abdominal pain. RUQ cramping, abdomen pain EXAM MEASUREMENTS: Liver Length: 16.1 cm Gallbladder Wall: 0.2 cm CBD: 0.5 cm Spleen: 11.2 cm Right Kidney: 12.1 x 5.1 x 4.3 cm Left Kidney: 11.3 x 6.2 x 5.5 cm Pancreas: visualized portions wnl, limited by overlying midline bowel gas Liver: wnl Gallbladder: 1.5cm non mobile echogenic shadowing focus Evidence for sonographic Watson's sign: yes CBD: visualized portions wnl, limited by overlying bowel gas Spleen: visualized portions wnl, limited by overlying bowel gas Right Kidney: wnl Left Kidney: wnl Upper IVC: wnl Abd Aorta: proximal portion wnl, mid and distal portion obscured by overlying midline bowel gas IMPRESSION: 1. Cholelithiasis
[2018-07-24] MEDS ORDERED: NALOXONE 0.4 MG/ML 1 ML VIAL IV PRN (16:24)
[2018-07-24] MEDS ORDERED: MORPHINE SULFATE 4 MG/ML SYRINGE IV PRN (16:24)
[2018-07-24] MEDS ORDERED: SODIUM CHLORIDE 0.9% 1,000 ML IV STA (16:27)
[2018-07-24 16:32] LABS: Appearance,Urine Clear (Clear); Bilirubin,Urine Negative (Negative); Blood,Urine Negative (Negative); Color,Urine Yellow; Glucose,Urine (UA) Negative (Negative); Ketones,Urine Negative (Negative); Leukocyte Esterase,Urine Negative (Negative); Nitrite,Urine Negative (Negative); PH, Urine 8.5 (5.0-8.0); Protein,Urine Trace (Negative); Urobilinogen,Urine <2.0 mg/dL (<2.0)
[2018-07-24] MEDS ORDERED: metroNIDAZOLE-NS PMX 500 MG in SALINE 1 100ML.BAG IVPB STA (17:00)
[2018-07-24 17:05] LABS: Specific Gravity,Urine >1.050 (1.001-1.035)
[2018-07-24] MEDS: ACETAMINOPHEN IV (For NPO) 1,000 MG in EMPTY BAG 1 BAG IVPB SCH ×2 (18:47→23:47)
[2018-07-24] MEDS: HEPARIN SODIUM,PORCINE 5,000 UNIT/ML 1 ML VIAL SQ SCH (23:47)
[2018-07-25] MEDS: ACETAMINOPHEN IV (For NPO) 1,000 MG in EMPTY BAG 1 BAG IVPB SCH ×2 (05:35→12:17)
[2018-07-25] MEDS: HEPARIN SODIUM,PORCINE 5,000 UNIT/ML 1 ML VIAL SQ SCH ×3 (07:47→23:54)
[2018-07-25] MEDS: PANTOPRAZOLE 40 MG/10 ML VIAL IV SCH (07:48)
--- NOTE | 2018-07-25 08:27 | XR ---
EXAMINATION TYPE: XR abdomen complete w decub DATE OF EXAM: 07/25/2018 COMPARISON: NONE HISTORY: Pain TECHNIQUE: Supine, upright, and left side down lateral decubitus views of the abdomen are obtained. FINDINGS: There is no evidence for pneumoperitoneum. The bowel gas pattern is nonspecific as there is air throughout nondilated small and large bowel. No mass effects are seen. Spina bifida occulta involving the sacrum noted. No unusual calcifications. IMPRESSION: Nonspecific abdomen
[2018-07-25] MEDS: metroNIDAZOLE-NS PMX 500 MG in SALINE 1 100ML.BAG IVPB SCH ×3 (08:50→23:54)
[2018-07-25] MEDS: SODIUM CHLORIDE 0.9% 1,000 ML IV SCH ×2 (08:52→16:33)
[2018-07-25 09:17] LABS: Basophils # (A) 0.1 k/uL (0-0.2); Basophils % (A) 1 %; Eosinophils # (A) 0.2 k/uL (0-0.7); Eosinophils % (A) 2 %; HCT 46.5 % (39.0-53.0); HGB 15.2 gm/dL (13.0-17.5); Lymphocytes # (A) 1.8 k/uL (1.0-4.8); Lymphocytes % (A) 25 %; MCH 28.3 pg (25.0-35.0); MCHC 32.7 g/dL (31.0-37.0); MCV 86.6 fL (80.0-100.0); Mean Platelet Volume 6.5; Monocytes # (A) 0.6 k/uL (0-1.0); Monocytes % (A) 8 %; Neutrophils # (A) 4.3 k/uL (1.3-7.7); Neutrophils % (A) 62 %; Platelet Count 276 k/uL (150-450); RBC 5.38 m/uL (4.30-5.90); RDW 13.9 % (11.5-15.5); WBC 7.1 k/uL (3.8-10.6)
[2018-07-25 09:23] LABS: ALT 39 U/L (21-72); AST 24 U/L (17-59); Albumin 3.6 g/dL (3.5-5.0); Alkaline Phosphatase 43 U/L (38-126); Anion Gap 7 mmol/L; Blood Urea Nitrogen 17 mg/dL (9-20); Calcium 8.7 mg/dL (8.4-10.2); Carbon Dioxide 25 mmol/L (22-30); Chloride 107 mmol/L (98-107); Glucose 89 mg/dL (74-99); Potassium 4.3 mmol/L (3.5-5.1); Sodium 139 mmol/L (137-145); Total Bilirubin 0.6 mg/dL (0.2-1.3); Total Protein 6.1 g/dL (6.3-8.2)
--- NOTE | 2018-07-25 09:27 | P.GSHP ---
<Sonja Sparrow - Last Filed: 07/25/18 09:13> History of Present Illness H&P Date: 07/25/18 This is a 47-year-old gentleman who presented with a chief complaint to the emergency room to be evaluated for nausea sensation with increase pain above the umbilical with abdominal bloating. Patient stated that the pain started 4- 5 weeks ago he noted that on the right upper quadrant under the rib he would get this intense pain the area would actually bulge out and resolve on its own. He noted that nothing would seem to aggravate it or relieve it. Patient stated the symptoms started yesterday before coming to the emergency room and did not get any better the pain seemed more intense. With increased abdominal bloating. Patient stated he had a bowel movement yesterday morning. Patient does give a past medical history of GERD Past surgical history open appendectomy as a teenager orthopedic procedures Currently at the time of my exam patient states abdominal bloating resolved with a noted improvement in abdominal pain less tender denying nausea or vomiting " Emergency room computed tomography scan of the abdomen pelvis reviewing the report indicates dilated fluid-filled small bowel loops with an area localized wall thickening involving the ileum within the right abdomen. Appears to be a changing caliber of the bowel at this level. Findings could represent transition point possible small bowel obstruction. Ultrasound of the abdomen revealing report cholelithiasis gallbladder 1.5 cm non mobile echogenic shadowing focus sonographic Watson sign positive abdominal x-ray this morning no evidence for pneumoperitoneum - Review of Systems Comment: Essentially unremarkable except as mentioned in the present illness Past Medical History Past Medical History: GERD/Reflux Additional Past Medical History / Comment(s): colitis, past ulcers History of Any Multi-Drug Resistant Organisms: None Reported Past Surgical History: Appendectomy, Back Surgery Additional Past Surgical History / Comment(s): (L) elbow surgery has metal in place. bilateral carpal tunnel surgery. Past Anesthesia/Blood Transfusion Reactions: No Reported Reaction Smoking Status: Never smoker - Past Family History Mother Additional Family Medical History / Comment(s): open heart surgery Father Family Medical History: Myocardial Infarction ([place]) Medications and Allergies Home Medications Medication Instructions Recorded Confirmed Type Pantoprazole Sodium 40 mg PO DAILY 12/05/16 07/24/18 History Pedi Multivit No.19/Folic Acid 400 mcg PO DAILY 07/24/18 07/24/18 History [Children's Multi-Vit Gummies] Allergies Allergy/AdvReac Type Severity Reaction Status Date / Time No Known Allergies Allergy Verified 07/24/18 14:52 Surgical - Exam Vital Signs Temp Pulse Resp BP Pulse Ox 99.9 F H 99 20 153/67 97 07/24/18 14:38 07/24/18 14:38 07/24/18 14:38 07/24/18 14:38 07/24/18 14:38 GENERAL APPEARANCE: 47-year-old male patient is alert, oriented x 3 in no acute distress. Currently states is a noted improvement in the abdominal pain VITAL SIGNS: Reviewed HEENT: Head is normocephalic and atraumatic. Pupils are equal and reactive. The nares are patent. Oropharynx is clear without lesions. NECK: Supple without lymphadenopathy. Traches midline. HEART: S1, S2. Regular rate and rhythm. No murmur noted denying chest pain LUNGS: No crackles or wheezes are heard. Adequate air movement bilaterally on room air ABDOMEN: Soft, mild tenderness right upper quadrant nondistended with good bowel sounds. No peritoneal signs. No palpable organomegaly or masses. Reports no nausea no vomiting states passing gas bowel movement the day before normal no blood noted EXTREMITIES: Normal skin color and turgor. No cyanosis, rash, ulceration, clubbing or edema. Radial pedal pulses are 2/4 bilaterally. NEUROLOGICAL: No focal deficits. Strength and sensation are grossly intact. Results - Labs 07/24/18 15:06 07/24/18 15:06 Abnormal Lab Results - Last 24 Hours (Table) 07/24/18 07/24/18 07/24/18 Range/Units 15:06 15:06 16:20 WBC 12.3 H (3.8-10.6) k/uL Neutrophils # 10.4 H (1.3-7.7) k/uL Lymphocytes # 0.9 L (1.0-4.8) k/uL Glucose 103 H (74-99) mg/dL Urine pH 8.5 H (5.0-8.0) Ur Specific [place] >1.050 H (1.001-1.035) Urine Protein Trace H (Negative) Diabetes panel 07/24/18 Range/Units 15:06 Sodium 139 (137-145) mmol/L Potassium 4.6 (3.5-5.1) mmol/L Chloride 104 (98-107) mmol/L Carbon Dioxide 25 (22-30) mmol/L BUN 16 (9-20) mg/dL Creatinine 1.15 (0.66-1.25) mg/dL Glucose 103 H (74-99) mg/dL Calcium 9.7 (8.4-10.2) mg/dL AST 29 (17-59) U/L ALT 45 (21-72) U/L Alkaline Phosphatase 51 (38-126) U/L Total Protein 7.3 (6.3-8.2) g/dL Albumin 4.5 (3.5-5.0) g/dL Calcium panel 07/24/18 Range/Units 15:06 Calcium 9.7 (8.4-10.2) mg/dL Albumin 4.5 (3.5-5.0) g/dL Pituitary panel 07/24/18 Range/Units 15:06 Sodium 139 (137-145) mmol/L Potassium 4.6 (3.5-5.1) mmol/L Chloride 104 (98-107) mmol/L Carbon Dioxide 25 (22-30) mmol/L BUN 16 (9-20) mg/dL Creatinine 1.15 (0.66-1.25) mg/dL Glucose 103 H (74-99) mg/dL Calcium 9.7 (8.4-10.2) mg/dL Adrenal panel 07/24/18 Range/Units 15:06 Sodium 139 (137-145) mmol/L Potassium 4.6 (3.5-5.1) mmol/L Chloride 104 (98-107) mmol/L Carbon Dioxide 25 (22-30) mmol/L BUN 16 (9-20) mg/dL Creatinine 1.15 (0.66-1.25) mg/dL Glucose 103 H (74-99) mg/dL Calcium 9.7 (8.4-10.2) mg/dL Total Bilirubin 1.1 (0.2-1.3) mg/dL AST 29 (17-59) U/L ALT 45 (21-72) U/L Alkaline Phosphatase 51 (38-126) U/L Total Protein 7.3 (6.3-8.2) g/dL Albumin 4.5 (3.5-5.0) g/dL Assessment and Plan Assessment: Impression Present on admission right upper quadrant abdominal pain with abdominal bloating possible due to small bowel obstruction with transition point right abdomen Ultrasound of the abdomen report indicate cholelithiasis Present on admission leukocytosis History of esophageal reflux disease CAT scan abdomen and pelvis report indicate possible small bowel obstruction with transition point right abdomen Remote surgical history open appendectomy as a teenager Plan Keep nothing by mouth IV fluid for hydration IV antibiotics as ordered Flagyl and Levaquin Pain control DVT and GI prophylaxis Further recommendations pending The above impression and plan of care have been discussed and directed by signing physician. Sonja Sparrow nurse practitioner acting as scribe for signing physician. <Carlos West - Last Filed: 07/25/18 13:10> History of Present Illness Chief Complaint: Right upper quadrant pain Surgical - Exam Vital Signs Temp Pulse Resp BP Pulse Ox 99.9 F H 99 20 153/67 97 07/24/18 14:38 07/24/18 14:38 07/24/18 14:38 07/24/18 14:38 07/24/18 14:38 Results - Labs 07/25/18 08:22 07/25/18 08:43 Abnormal Lab Results - Last 24 Hours (Table) 07/24/18 07/24/18 07/24/18 Range/Units 15:06 15:06 16:20 WBC 12.3 H (3.8-10.6) k/uL Neutrophils # 10.4 H (1.3-7.7) k/uL Lymphocytes # 0.9 L (1.0-4.8) k/uL Glucose 103 H (74-99) mg/dL Total Protein (6.3-8.2) g/dL Urine pH 8.5 H (5.0-8.0) Ur Specific [place] >1.050 H (1.001-1.035) Urine Protein Trace H (Negative) 07/25/18 Range/Units 08:43 WBC (3.8-10.6) k/uL Neutrophils # (1.3-7.7) k/uL Lymphocytes # (1.0-4.8) k/uL Glucose (74-99) mg/dL Total Protein 6.1 L (6.3-8.2) g/dL Urine pH (5.0-8.0) Ur Specific [place] (1.001-1.035) Urine Protein (Negative) Diabetes panel 07/24/18 07/25/18 Range/Units 15:06 08:43 Sodium 139 139 (137-145) mmol/L Potassium 4.6 4.3 (3.5-5.1) mmol/L Chloride 104 107 (98-107) mmol/L Carbon Dioxide 25 25 (22-30) mmol/L BUN 16 17 (9-20) mg/dL Creatinine 1.15 1.08 (0.66-1.25) mg/dL Glucose 103 H 89 (74-99) mg/dL Calcium 9.7 8.7 (8.4-10.2) mg/dL AST 29 24 (17-59) U/L ALT 45 39 (21-72) U/L Alkaline Phosphatase 51 43 (38-126) U/L Total Protein 7.3 6.1 L (6.3-8.2) g/dL Albumin 4.5 3.6 (3.5-5.0) g/dL Calcium panel 07/24/18 07/25/18 Range/Units 15:06 08:43 Calcium 9.7 8.7 (8.4-10.2) mg/dL Albumin 4.5 3.6 (3.5-5.0) g/dL Pituitary panel 07/24/18 07/25/18 Range/Units 15:06 08:43 Sodium 139 139 (137-145) mmol/L Potassium 4.6 4.3 (3.5-5.1) mmol/L Chloride 104 107 (98-107) mmol/L Carbon Dioxide 25 25 (22-30) mmol/L BUN 16 17 (9-20) mg/dL Creatinine 1.15 1.08 (0.66-1.25) mg/dL Glucose 103 H 89 (74-99) mg/dL Calcium 9.7 8.7 (8.4-10.2) mg/dL Adrenal panel 07/24/18 07/25/18 Range/Units 15:06 08:43 Sodium 139 139 (137-145) mmol/L Potassium 4.6 4.3 (3.5-5.1) mmol/L Chloride 104 107 (98-107) mmol/L Carbon Dioxide 25 25 (22-30) mmol/L BUN 16 17 (9-20) mg/dL Creatinine 1.15 1.08 (0.66-1.25) mg/dL Glucose 103 H 89 (74-99) mg/dL Calcium 9.7 8.7 (8.4-10.2) mg/dL Total Bilirubin 1.1 0.6 (0.2-1.3) mg/dL AST 29 24 (17-59) U/L ALT 45 39 (21-72) U/L Alkaline Phosphatase 51 43 (38-126) U/L Total Protein 7.3 6.1 L (6.3-8.2) g/dL Albumin 4.5 3.6 (3.5-5.0) g/dL Assessment and Plan Assessment: As above. Patient with 5-6 week history of right upper quadrant pain and swelling. These episodes come intermittently. On Tuesday he began experiencing a new pain involving bloating in the mid abdomen. CAT scan shows a possible irregularity in the mid small bowel. Suspect underlying chronic cholecystitis but would like to rule out small bowel pathology preoperatively. We'll order small bowel series at this time. If that study is normal would recommend proceeding with cholecystectomy either inpatient or outpatient. Risks of bleeding, infection, bile leak, bile duct injury, retained common bile duct stone, trocar injury, conversion to an open procedure, potential findings of other etiologies for her pain requiring additional procedures, hernia, anesthesia related complications were reviewed. The patient understands and wishes to proceed.
[2018-07-25] MEDS: LEVOFLOXACIN 500MG-D5W PMX 500 MG in DEXTROSE/WATER 1 100ML.BAG IVPB SCH (09:53)
[2018-07-25] MEDS ORDERED: HEPARIN SODIUM,PORCINE 5,000 UNIT/ML 1 ML VIAL SQ SCH (12:16)
--- NOTE | 2018-07-25 13:45 | P.CONS ---
History of Present Illness - Reason for Consult Consult date: 07/25/18 Medical consult Requesting physician: Carlos West - Chief Complaint Abdominal pain - History of Present Illness This is a 47-year-old male with a known history of GERD , infectious colitis and an appendectomy. Presents to the emergency room with complaints of abdominal pain on the right side with nausea. Pain has been intermittent over the last 4-5 weeks mostly in the right upper quadrant. Patient reports that the area in the right upper quadrant bulge out at time with pain. It feels like a muscle spasming. And results. This will happen multiple times throughout the day. Patient then started having lower abdominal cramping yesterday. The pain became severe. Patient has had nausea no actual vomiting. He is having small bowel movements. Denies any difficulty with urinating. Denies any chest pain shortness of breath. Denies any fever chills or sweats. Computed tomography scan of the abdomen showing dilated fluid-filled small bowel loops with an area of localized wall thickening involving the ileum within the right abdomen. There appears to be a change in caliber of the bowel at this level. Findings could represent a transition point and possible small bowel obstruction. Patient was admitted to surgical service for a possible small bowel obstruction. Also had an abdominal ultrasound showing cholelithiasis. White count 12.3 and temp 100.2. He was started on Levaquin and Flagyl. We have been consulted for medical management. Today patient reports that his abdominal distention has shown improvement. He has not required pain medication today. Patient is scheduled for small bowel follow- through Review of Systems Please refer to HPI otherwise unremarkable Past Medical History Past Medical History: GERD/Reflux Additional Past Medical History / Comment(s): colitis, past ulcers History of Any Multi-Drug Resistant Organisms: None Reported Past Surgical History: Appendectomy, Back Surgery Additional Past Surgical History / Comment(s): (L) elbow surgery has metal in place. bilateral carpal tunnel surgery. Past Anesthesia/Blood Transfusion Reactions: No Reported Reaction Smoking Status: Never smoker - Past Family History Mother Additional Family Medical History / Comment(s): open heart surgery Father Family Medical History: Myocardial Infarction ([place]) Medications and Allergies Home Medications Medication Instructions Recorded Confirmed Type Pantoprazole Sodium 40 mg PO DAILY 12/05/16 07/24/18 History Pedi Multivit No.19/Folic Acid 400 mcg PO DAILY 07/24/18 07/24/18 History [Children's Multi-Vit Gummies] Allergies Allergy/AdvReac Type Severity Reaction Status Date / Time No Known Allergies Allergy Verified 07/24/18 14:52 Physical Exam Vitals: Vital Signs Temp Pulse Pulse Resp BP BP Pulse Ox 07/25/18 06:14 98.7 F 67 18 111/69 97 07/24/18 23:00 98.4 F 59 L 20 101/66 98 07/24/18 20:30 87 18 07/24/18 17:00 100.2 F H 87 18 126/63 97 07/24/18 16:50 88 16 132/70 98 07/24/18 14:38 99.9 F H 99 20 153/67 97 Intake and Output 07/24/18 07/25/18 07/25/18 22:59 06:59 14:59 Other: Voiding Method Toilet # Voids 3 Head normocephalic Neck supple Lungs clear to auscultation bilaterally no wheezing or crackles Heart regular rate and rhythm S1-S2, no rub or gallop Abdomen is soft right upper quadrant and lower abdominal tenderness with palpation nondistended positive bowel sounds no hepatosplenomegaly Extremities no edema Neuro alert and orientated to 3 Results CBC & Chem 7: 07/25/18 08:22 07/25/18 08:43 Labs: Abnormal Lab Results - Last 24 Hours (Table) 07/24/18 07/24/18 07/24/18 Range/Units 15:06 15:06 16:20 WBC 12.3 H (3.8-10.6) k/uL Neutrophils # 10.4 H (1.3-7.7) k/uL Lymphocytes # 0.9 L (1.0-4.8) k/uL Glucose 103 H (74-99) mg/dL Total Protein (6.3-8.2) g/dL Urine pH 8.5 H (5.0-8.0) Ur Specific [place] >1.050 H (1.001-1.035) Urine Protein Trace H (Negative) 07/25/18 Range/Units 08:43 WBC (3.8-10.6) k/uL Neutrophils # (1.3-7.7) k/uL Lymphocytes # (1.0-4.8) k/uL Glucose (74-99) mg/dL Total Protein 6.1 L (6.3-8.2) g/dL Urine pH (5.0-8.0) Ur Specific [place] (1.001-1.035) Urine Protein (Negative) Assessment and Plan Assessment: 1. Right upper quadrant abdominal pain with possible small bowel obstruction noted on computed tomography scan. Patient noted to surgical service. They have ordered a small bowel follow-through. Patient currently on Levaquin and Flagyl empirically 2. Cholelithiasis noted on abdominal ultrasound. We'll await further surgical recommendations 3. Leukocytosis likely due to an abdominal infection. Improving with Levaquin and Flagyl 4. History of GERD GI prophylaxis Protonix and DVT prophylaxis subcu heparin Thank you for this Patient. We will continue to follow along during patient's hospitalization Time with Patient: Greater than 30 (Greater than 60% of the total time spent in counseling and coordination of care.I performed an examination of the patient and discussed their management with the physician Senior Product Designer. I have reviewed the Physician Senior Product Designer's notes and agree with the documented findings and plan of care)
--- NOTE | 2018-07-25 18:48 | FL ---
EXAMINATION TYPE: FL small bowel follow through, total 4 views were obtained DATE OF EXAM: 07/25/2018 CLINICAL HISTORY: Abdominal pain, small bowel mass TECHNIQUE: Department protocol. A single contrast small bowel follow through is performed utilizing 16 ounce oral EZpaque. FINDINGS: 0 minute, 30 minute, 80 minute, and 150 minute post oral contrast abdominal pelvic AP radi ographs were obtained. The small bowel study shows transit to the colon in less than 90 minutes. There is no bowel obstruction. There is a normal mucosal fold pattern throughout the small bowel. There is no evidence of any stricture or filling defect noted. No separation of bowel loops. No evidence of mass. The terminal ileum appears unremarkable. IMPRESSION: Negative examination.
[2018-07-26] MEDS: SODIUM CHLORIDE 0.9% 1,000 ML IV SCH ×3 (06:23→16:11)
[2018-07-26] MEDS: metroNIDAZOLE-NS PMX 500 MG in SALINE 1 100ML.BAG IVPB SCH ×2 (07:47→15:07)
[2018-07-26] MEDS: PANTOPRAZOLE 40 MG/10 ML VIAL IV SCH (07:48)
[2018-07-26] MEDS: HEPARIN SODIUM,PORCINE 5,000 UNIT/ML 1 ML VIAL SQ SCH ×2 (07:48→15:08)
[2018-07-26 09:06] LABS: Basophils % (A) 0 %; Eosinophils # (A) 0.2 k/uL (0-0.7); Eosinophils % (A) 2 %; HCT 47.4 % (39.0-53.0); HGB 15.4 gm/dL (13.0-17.5); Lymphocytes # (A) 1.8 k/uL (1.0-4.8); Lymphocytes % (A) 23 %; MCH 27.8 pg (25.0-35.0); MCHC 32.5 g/dL (31.0-37.0); MCV 85.4 fL (80.0-100.0); Mean Platelet Volume 6.3; Monocytes # (A) 0.5 k/uL (0-1.0); Monocytes % (A) 6 %; Neutrophils # (A) 5.2 k/uL (1.3-7.7); Neutrophils % (A) 67 %; Platelet Count 309 k/uL (150-450); RBC 5.55 m/uL (4.30-5.90); RDW 13.5 % (11.5-15.5); WBC 7.8 k/uL (3.8-10.6)
[2018-07-26] MEDS: LEVOFLOXACIN 500MG-D5W PMX 500 MG in DEXTROSE/WATER 1 100ML.BAG IVPB SCH (09:11)
[2018-07-26 09:24] LABS: ALT 40 U/L (21-72); AST 27 U/L (17-59); Albumin 3.7 g/dL (3.5-5.0); Alkaline Phosphatase 45 U/L (38-126); Anion Gap 10 mmol/L; Blood Urea Nitrogen 18 mg/dL (9-20); Calcium 9.3 mg/dL (8.4-10.2); Carbon Dioxide 25 mmol/L (22-30); Chloride 106 mmol/L (98-107); Glucose 78 mg/dL (74-99); Potassium 4.4 mmol/L (3.5-5.1); Sodium 141 mmol/L (137-145); Total Bilirubin 0.7 mg/dL (0.2-1.3); Total Protein 6.4 g/dL (6.3-8.2)
--- NOTE | 2018-07-26 12:22 | P.PN ---
Subjective Progress Note Date: 07/26/18 Principal diagnosis: Abdominal pain Patient had a small bowel series performed yesterday. No evidence of small bowel pathology was identified. Still having pain. Still feels bloated at times. Low-grade temperature noted. White blood cell count and liver enzymes normal. Objective - Vital Signs Vital signs: Vital Signs Temp 98.3 F 07/26/18 06:18 Pulse 74 07/26/18 06:18 Resp 18 07/26/18 06:18 BP 126/98 07/26/18 06:18 Pulse Ox 96 07/26/18 06:18 Intake & Output 07/25/18 07/26/18 07/26/18 18:59 06:59 18:59 Other: Voiding Method Toilet # Voids 3 2 - Exam Abdomen: Soft, mild distention, mild upper abdominal tenderness - Labs CBC & Chem 7: 07/26/18 08:22 07/26/18 08:22 Assessment and Plan (1) Cholecystitis Narrative/Plan: Patient's tenderness and pain has been centered mostly in the upper right upper quadrant. Yesterday small bowel series was normal. We'll proceed with cholecystectomy at this time. Risks of bleeding, infection, bile leak, bile duct injury, retained common bile duct stone, trocar injury, conversion to an open procedure, potential findings of other etiologies for her pain requiring additional procedures, hernia, anesthesia related complications were reviewed. The patient understands and wishes to proceed. Current Visit: Yes Status: Acute Code(s): K81.9 - CHOLECYSTITIS, UNSPECIFIED SNOMED Code(s): 94488710
--- NOTE | 2018-07-26 13:23 | P.PN ---
Subjective Progress Note Date: 07/26/18 This is a 47-year-old male with a known history of GERD , infectious colitis and an appendectomy. Presents to the emergency room with complaints of abdominal pain on the right side with nausea. Pain has been intermittent over the last 4-5 weeks mostly in the right upper quadrant. Patient reports that the area in the right upper quadrant bulge out at time with pain. It feels like a muscle spasming. And results. This will happen multiple times throughout the day. Patient then started having lower abdominal cramping yesterday. The pain became severe. Patient has had nausea no actual vomiting. He is having small bowel movements. Denies any difficulty with urinating. Denies any chest pain shortness of breath. Denies any fever chills or sweats. Computed tomography scan of the abdomen showing dilated fluid-filled small bowel loops with an area of localized wall thickening involving the ileum within the right abdomen. There appears to be a change in caliber of the bowel at this level. Findings could represent a transition point and possible small bowel obstruction. Patient was admitted to surgical service for a possible small bowel obstruction. Also had an abdominal ultrasound showing cholelithiasis. White count 12.3 and temp 100.2. He was started on Levaquin and Flagyl. We have been consulted for medical management. Today patient reports that his abdominal distention has shown improvement. He has not required pain medication today. Patient is scheduled for small bowel follow- through On 07/26/2018 patient is still complaining of some abdominal discomfort. Small bowel follow-through completed and was negative. Per surgical services while proceed with cholecystectomy at this time. Patient denies chest pain or shortness of breath. Patient denies nausea vomiting and diarrhea. Patient denies any urinary burning or frequency Objective - Vital Signs Vital signs: Vital Signs Temp 98.3 F 07/26/18 06:18 Pulse 74 07/26/18 06:18 Resp 18 07/26/18 06:18 BP 126/98 07/26/18 06:18 Pulse Ox 96 07/26/18 06:18 Intake & Output 07/25/18 07/26/18 07/26/18 18:59 06:59 18:59 Other: Voiding Method Toilet # Voids 3 2 - Exam Head normocephalic Neck supple Lungs clear to auscultation bilaterally no wheezing or crackles Heart regular rate and rhythm S1-S2, no rub or gallop Abdomen is soft nontender nondistended positive bowel sounds no hepatosplenomegaly Extremities no edema Neuro alert and orientated to 3 - Labs CBC & Chem 7: 07/26/18 08:22 07/26/18 08:22 Assessment and Plan Assessment: 1. Right upper quadrant abdominal pain with possible small bowel obstruction noted on computed tomography scan. Patient noted to surgical service. They have ordered a small bowel follow-through. Patient currently on Levaquin and Flagyl empirically. Small bowel follow-through negative. 2. Cholelithiasis noted on abdominal ultrasound. We'll await further surgical recommendations. Per surgical services will proceed with cholecystectomy at this time. 3. Leukocytosis likely due to an abdominal infection. Improving with Levaquin and Flagyl 4. History of GERD GI prophylaxis Protonix and DVT prophylaxis subcu heparin I performed an examination of the patient and discussed their management with the Nurse Practitioner. I have reviewed the Nurse Practitioner's notes and agree with the documented findings and plan of care
[2018-07-26] MEDS ORDERED: DEXAMETHASONE SOD PHOS (MDV) 100 MG/10 ML VIAL IVP ONE (17:06)
[2018-07-26] MEDS: ONDANSETRON 4 MG/2 ML VIAL IVP PRN ×2 (17:06→22:00)
[2018-07-26] MEDS ORDERED: IV FLUID CONTINUATION 1,000 ML IV ONE (17:06)
[2018-07-26] MEDS ORDERED: LIDOCAINE 1% INJ 10MG/ML (20 ML MDV) ONE (17:22)
[2018-07-26] MEDS ORDERED: MIDAZOLAM 2 MG/2 ML VIAL ONE (17:22)
[2018-07-26] MEDS ORDERED: SUCCINYLCHOLINE CHLORIDE 100 MG/5 ML SYR IV ONE (17:22)
[2018-07-26] MEDS ORDERED: PROPOFOL 10 MG/ML 20 ML VIAL IV ONE (17:22)
[2018-07-26] MEDS ORDERED: ROCURONIUM BROMIDE 10 MG/ML 10 ML VIAL IV ONE (17:22)
[2018-07-26] MEDS ORDERED: GLYCOPYRROLATE 0.2 MG/ML 2 ML VIAL ONE (17:22)
[2018-07-26] MEDS ORDERED: ePHEDrine SULFATE/0.9% NACL/PF 50 MG/5 ML SYRINGE IV ONE (17:22)
[2018-07-26] MEDS ORDERED: fentaNYL (PF) 50 MCG/ML 2 ML AMP ONE (17:22)
[2018-07-26] MEDS ORDERED: NEOSTIGMINE 1 MG/ML 10 ML VIAL ONE (17:22)
[2018-07-26] MEDS ORDERED: BUPIVACAIN-EPI 0.25%-1:200,000 30 ML VIAL SQ ONE ×2 (17:22)
[2018-07-26] MEDS ORDERED: MORPHINE SULFATE 10 MG/ML SYRINGE ONE (17:22)
[2018-07-26] MEDS ORDERED: LACTATED RINGERS 1,000 ML IV ONE (17:49)
[2018-07-26] MEDS ORDERED: HYDROmorphone 1 MG/ML 1 ML SYRINGE IVP ONE ×6 (18:41→20:08)
--- NOTE | 2018-07-26 18:50 | P.OP ---
Date of Procedure: 07/26/18 Procedure(s) Performed: PREOPERATIVE DIAGNOSIS: Acute cholecystitis POSTOPERATIVE DIAGNOSIS: Same PROCEDURE: Laparoscopic cholecystectomy SURGEON: Jenna EBL: Minimal see anesthesia record ANESTHESIA: Gen. COMPLICATIONS: None OPERATIVE PROCEDURE: The patient was brought and placed on the operating room table in the supine position. The patient was placed under general anesthesia at that time. The abdomen was prepped and draped in the usual sterile fashion. A small vertical supraumbilical incision was made. A small infraumbilical hernia was identified measuring approximately 1 cm or less. This was not repaired at this time given its location. The fascia was grasped with the Dennis forceps. The fascia was retracted anteriorly. The Veress needle was advanced into the peritoneal cavity. The saline drop test was normal. Insufflation took place up to 15 mmHg. A 5 mm optical trocar was advanced and the peritoneal cavity. 2 additional 5 mm trochars were placed in the right upper quadrant under direct visualization. A 10 mm trocar was advanced into the epigastric incision site. The abdominal cavity was inspected. The visualized liver stomach and colon appeared normal. There were adhesions in the right midabdomen and the right lower quadrant from previous appendectomy. There were a few prominent small bowel loops. For that reason an additional 5 mm trocar was placed in the lateral aspect of the left midabdomen. The small bowel was then run from the ligament of Treitz all the way to the ileocecal valve. No abnormalities were identified. No evidence of small bowel pathology or obstruction was seen. The gallbladder itself was somewhat distended and fairly large in size. The gallbladder was retracted superiorly and laterally. The peritoneum overlying the infundibulum was bluntly dissected. The patient's cystic duct was visualized. The junction between the cystic duct common and hepatic duct was identified. The cystic duct was then divided after placement of 3 10 mm clips on the patient's side and one on the specimen side. The cystic artery was identified and clipped as well. A small vessel was seen along the gallbladder fossa and clipped as well. The gallbladder was then removed from the liver bed using electrocautery. The gallbladder was then removed from the epigastric trocar site with an Endo Catch bag. The gallbladder fossa was irrigated with saline. There was no evidence of any bleeding or biliary drainage seen. The trochars were then removed. The fascia at the 10 millimeter site was closed using a Case-Mitchel 0 Vicryl stitch. The skin at all 4 sites was closed using a 4-0 Monocryl stitch. At the end of this procedure the sponge and needle counts were correct. DISPOSITION: Stable to the recovery room
[2018-07-26] MEDS ORDERED: KETOROLAC 30 MG/ML 1 ML VIAL IVP ONE (18:52)
[2018-07-26] MEDS ORDERED: MEPERIDINE 50 MG/ML SYRINGE IVP ONE ×3 (19:07→20:08)
[2018-07-26] MEDS: MORPHINE SULFATE 4 MG/ML SYRINGE IVP PRN (21:49)
[2018-07-26] MEDS: HYDROcodone/APAP 5-325MG 1 EACH TAB PO PRN (23:22)
[2018-07-27] MEDS: metroNIDAZOLE-NS PMX 500 MG in SALINE 1 100ML.BAG IVPB SCH ×2 (00:13→08:33)
[2018-07-27] MEDS: HEPARIN SODIUM,PORCINE 5,000 UNIT/ML 1 ML VIAL SQ SCH ×2 (00:13→08:40)
[2018-07-27] MEDS: MORPHINE SULFATE 4 MG/ML SYRINGE IVP PRN (01:23)
[2018-07-27 01:25] VITALS: RESP 18
[2018-07-27 01:32] VITALS: PULSE 65
[2018-07-27] MEDS: HYDROcodone/APAP 5-325MG 1 EACH TAB PO PRN ×2 (04:08→08:37)
[2018-07-27] MEDS: SODIUM CHLORIDE 0.9% 1,000 ML IV SCH ×2 (06:34→09:04)
[2018-07-27 07:25] VITALS: BP 94/48; TEMP 98.3
[2018-07-27 08:06] LABS: Basophils % (A) 0 %; Eosinophils % (A) 0 %; HGB 14.7 gm/dL (13.0-17.5); Lymphocytes # (A) 1.4 k/uL (1.0-4.8); Lymphocytes % (A) 13 %; MCH 27.4 pg (25.0-35.0); MCHC 31.3 g/dL (31.0-37.0); MCV 87.5 fL (80.0-100.0); Mean Platelet Volume 6.3; Monocytes # (A) 0.6 k/uL (0-1.0); Monocytes % (A) 6 %; Neutrophils # (A) 8.1 k/uL (1.3-7.7); Neutrophils % (A) 79 %; Platelet Count 324 k/uL (150-450); RBC 5.37 m/uL (4.30-5.90); RDW 13.8 % (11.5-15.5); WBC 10.2 k/uL (3.8-10.6)
[2018-07-27 08:22] LABS: ALT 38 U/L (21-72); AST 25 U/L (17-59); Albumin 3.5 g/dL (3.5-5.0); Alkaline Phosphatase 40 U/L (38-126); Anion Gap 8 mmol/L; Blood Urea Nitrogen 18 mg/dL (9-20); Calcium 9.1 mg/dL (8.4-10.2); Carbon Dioxide 24 mmol/L (22-30); Chloride 108 mmol/L (98-107); Glucose 91 mg/dL (74-99); Sodium 140 mmol/L (137-145); Total Bilirubin 0.5 mg/dL (0.2-1.3); Total Protein 6.1 g/dL (6.3-8.2)
[2018-07-27] MEDS: PANTOPRAZOLE 40 MG/10 ML VIAL IV SCH (08:34)
[2018-07-27] MEDS: LEVOFLOXACIN 500MG-D5W PMX 500 MG in DEXTROSE/WATER 1 100ML.BAG IVPB SCH (09:50)
--- NOTE | 2018-07-27 12:12 | P.DS ---
<Sonja Sparrow M - Last Filed: 07/27/18 12:00> Providers Date of admission: 07/24/18 16:24 Expected date of discharge: 07/27/18 Attending physician: Carlos West Consults: 07/24/18 16:25 Consult Physician Routine Consulting Provider: Scott Linares Consult Reason/Comments: medical consultation Do you want consulting provider notified?: Yes Primary care physician: [facility] Course: Pleasant 47-year-old male presented on the day of admission to the emergency room to be evaluated for chief complaint of developing pain on the right side with nausea with abdominal bloating. Patient stated that he initially developed pain about 5 weeks ago to the right upper quadrant. Patient states the pain would go to the rib he would get intense pain would actually cause cramping then resolve on its own patient stated there was nothing that seemed to make it worse or better. Patient states that he does have a history of GERD uses [id number] products. Patient stated he became concerned when the day of admission to the emergency room his abdomen actually bloated with intense pain. Patient has a past surgical history of an open appendectomy as a teenager otherwise no abdominal surgeries. Patient had an ultrasound of the abdomen did show cholelithiasis. No evidence of free air on the abdominal x -ray CAT scan of the abdomen pelvis in the emergency room was reviewed indicated dilated filled small bowel loops with an area localized causing wall thickening involving the ileum within the right abdomen. Appeared to be changing in caliber the bowel at this level. Possible small bowel obstruction to follow-up on the CAT scan of the abdomen pelvis a small bowel follow-through was obtained was negative exam Patient continue to have tenderness and pain mostly in the right upper quadrant. Patient elected to proceed with a lap cholecystectomy done on July 26 There were no postop events on the day of discharge patient was ambulatory on the unit passing gas no stool tolerating diet pain medication effective for pain control urinating no difficulty surgical incision sites dry afebrile white count 10.2 electrolytes within normal limits. Dr. West indicated no antibiotics indicated at this time Patient was felt to be clinically stable and appropriate proceed with discharge to home Impression discharge diagnosis Present on admission right upper quadrant abdominal pain with abdominal bloating possible due to small bowel obstruction with transition point right abdomen Ultrasound of the abdomen report indicate cholelithiasis Present on admission leukocytosis likely due to cholelithiasis History of esophageal reflux disease CAT scan abdomen and pelvis report indicate possible small bowel obstruction with transition point right abdomen Remote surgical history open appendectomy as a teenager Negative study for a small bowel follow-through Postop July 26 laparoscopic cholecystectomy for acute cholecystitis Obesity BMI 34 The above impression and plan of care have been discussed and directed by signing physician. Sonja Sparrow nurse practitioner acting as scribe for signing physician. Patient Condition at Discharge: Good Plan - Discharge Summary Discharge Rx Participant: Yes New Discharge Prescriptions: New Hydrocodone/Acetaminophen [[place] 5-325] 1 - 2 each PO Q4HR PRN #15 tab PRN Reason: pain No Action Pantoprazole Sodium 40 mg PO DAILY Pedi Multivit No.19/Folic Acid [Children's Multi-Vit Gummies] 400 mcg PO DAILY Discharge Medication List Pantoprazole Sodium 40 mg PO DAILY 12/05/16 [History] Pedi Multivit No.19/Folic Acid [Children's Multi-Vit Gummies] 400 mcg PO DAILY 07/24/18 [History] Hydrocodone/Acetaminophen [[place] 5-325] 1 - 2 each PO Q4HR PRN #15 tab 07/26/18 [Rx] Follow up Appointment(s)/Referral(s): Carlos West MD [Medical Doctor] - 08/02/18 2:45 pm Genevieve Kenyon MD [Primary Care Provider] - 07/31/18 9:15 am [facility] Patient Instructions/Handouts: *Surgery [facility] - Laparoscopic Cholecystectomy Discharge Instructions, Low Fat Diet (DC) Activity/Diet/Wound Care/Special Instructions: Low fat diet. Activity as tolerated. No tub bath for six weeks. Shower daily. No lifting over 10 pounds for the next 4 weeks. May use ice packs to surgical site. No driving while taking narcotic for pain. Discharge Disposition: HOME SELF-CARE <Carlos West - Last Filed: 07/27/18 15:32> - Discharge Diagnosis(es) (1) Cholecystitis Status: Acute Hospital Course: As above. Patient discharged earlier today prior to my arrival. He will follow -up with me in 1 week.
--- NOTE | 2018-07-27 13:17 | P.PN ---
Subjective Progress Note Date: 07/27/18 this is a 47-year-old male with a known history of GERD , infectious colitis and an appendectomy. Presents to the emergency room with complaints of abdominal pain on the right side with nausea. Pain has been intermittent over the last 4-5 weeks mostly in the right upper quadrant. Patient reports that the area in the right upper quadrant bulge out at time with pain. It feels like a muscle spasming. And results. This will happen multiple times throughout the day. Patient then started having lower abdominal cramping yesterday. The pain became severe. Patient has had nausea no actual vomiting. He is having small bowel movements. Denies any difficulty with urinating. Denies any chest pain shortness of breath. Denies any fever chills or sweats. Computed tomography scan of the abdomen showing dilated fluid-filled small bowel loops with an area of localized wall thickening involving the ileum within the right abdomen. There appears to be a change in caliber of the bowel at this level. Findings could represent a transition point and possible small bowel obstruction. Patient was admitted to surgical service for a possible small bowel obstruction. Also had an abdominal ultrasound showing cholelithiasis. White count 12.3 and temp 100.2. He was started on Levaquin and Flagyl. We have been consulted for medical management. Today patient reports that his abdominal distention has shown improvement. He has not required pain medication today. Patient is scheduled for small bowel follow- through On 07/26/2018 patient is still complaining of some abdominal discomfort. Small bowel follow-through completed and was negative. Per surgical services while proceed with cholecystectomy at this time. Patient denies chest pain or shortness of breath. Patient denies nausea vomiting and diarrhea. Patient denies any urinary burning or frequency 07/27/2018 status post left scalp cholecystectomy. Patient is tolerating diet. Pain is controlled. Surgical service is planning discharge today. They're not recommending antibiotics. White count normal. Patient is afebrile. Objective - Vital Signs Vital signs: Vital Signs Temp 98.3 F 07/27/18 07:00 Pulse 65 07/27/18 07:00 Resp 18 07/27/18 07:00 BP 94/48 07/27/18 07:00 Pulse Ox 95 07/27/18 07:00 Intake & Output 07/26/18 07/27/18 07/27/18 18:59 06:59 18:59 Intake Total 1500 700 420 Output Total 15 Balance 1485 700 420 Weight 90.718 kg Intake: IV 1500 250 Intake, IV Titration 300 Amount Levofloxacin 500Mg-D5w 100 Pmx 500 mg In Dextrose/ Water 1 100ml.bag @ 100 mls/hr IVPB Q24H ANG[facility] Rx#: [id number] Sodium Chloride 0.9% 1, 100 000 ml @ 125 mls/hr IV . Q8H ANG[facility] Rx#:[id number] metroNIDAZOLE-NS PMX 500 100 mg In Saline 1 100ml.bag @ 100 mls/hr IVPB Q8HR ANGEL[facility] Rx#:[id number] Oral 450 120 Output: Estimated Blood Loss 15 Other: Voiding Method Toilet Toilet # Voids 2 2 2 - Exam Head normocephalic Neck supple Lungs clear to auscultation bilaterally no wheezing or crackles Heart regular rate and rhythm S1-S2, no rub or gallop Abdomen is soft tender incision sites dressing clean dry and intact nondistended positive bowel sounds no hepatosplenomegaly Extremities no edema Neuro alert and orientated to 3 - Labs CBC & Chem 7: 07/27/18 07:08 07/27/18 07:08 Labs: Abnormal Lab Results - Last 24 Hours (Table) 07/27/18 07/27/18 Range/Units 07:08 07:08 Neutrophils # 8.1 H (1.3-7.7) k/uL Chloride 108 H (98-107) mmol/L Total Protein 6.1 L (6.3-8.2) g/dL Assessment and Plan Assessment: 1. Abdominal pain likely multifactorial due to a small bowel obstruction as well as an acute cholecystitis 2. Acute cholecystitis status post laparoscopic cholecystectomy. No antibiotics per surgical service at time of discharge 3. Leukocytosis likely secondary to acute cholecystitis now resolved. 4. History of GERD GI prophylaxis Protonix and DVT prophylaxis subcu heparin Patient is medically stable for discharge. Have him follow up with his PCP in 1 week. I performed an examination of the patient and discussed their management with the physician Consolidator. I have reviewed the Physician Consolidator's notes and agree with the documented findings and plan of care
== END 2018-07-27 12:52 | disposition home or self-care (01) | DRG 418 ==
LOC: EC 14:10 → 4MS4W 16:24
PROVIDERS: ADMIT Surgery; ATTEND Surgery
PROC: 0FT44ZZ Resection of Gallbladder, Percutaneous Endoscopic Approach (ICD-10-PCS; principal; 2018-07-26 07:30)
DX: K80.00 Calculus of gallbladder with acute cholecystitis without obstruction (principal); K56.609 Unspecified intestinal obstruction, unspecified as to partial versus complete obstruction; E66.9 Obesity, unspecified; K21.9 Gastro-esophageal reflux disease without esophagitis; Z68.34 Body mass index [BMI] 34.0-34.9, adult; Z82.49 Family history of ischemic heart disease and other diseases of the circulatory system; Z79.899 Other long term (current) drug therapy; K42.9 Umbilical hernia without obstruction or gangrene
CPT/HCPCS: 36415; 74021; 74177; 74250; 76700; 80053; 81003; 83690; 85025; 85610; 85730; 88304; 93005; 96361; 96374; 96375; 96376; 99285

== ENCOUNTER 2018-08-16 21:07 | Emergency (ER) | payer MEDICAID ==
[2018-08-16 21:19] VITALS: BP 130/87; PULSE 81; RESP 16; TEMP 97.8
--- NOTE | 2018-08-16 22:03 | XR ---
EXAMINATION TYPE: XR calcaneus 2V RT DATE OF EXAM: 08/16/2018 COMPARISON: NONE HISTORY: Fell from a ladder. Heel pain TECHNIQUE: 3 views FINDINGS: There is a small plantar calcaneal spur. I see no fracture. Subtalar joint appears normal. IMPRESSION: No fracture of the calcaneus seen.
--- NOTE | 2018-08-16 22:24 | ED ---
Lower Extremity Injury HPI - General Chief Complaint: Extremity Injury, Lower Stated Complaint: Foot injury/fell from 4ft ladder Time Seen by Provider: 08/16/18 21:38 Source: patient, RN notes reviewed Mode of arrival: ambulatory Limitations: no limitations - History of Present Illness Initial Comments: 47-year-old male presents emergency Department chief complaint of right heel pain. Patient states he fell off foot ladder on Tuesday. Patient states that he landed directly on his calcaneus he states that his foot was caught in the wrong on the latter states that his shoe came off and then fell to the ground. He had no other injuries denies any head injury, back injury. He states that he cannot put any pressure on his right heel - Related Data Home Medications Medication Instructions Recorded Confirmed Pantoprazole Sodium 40 mg PO DAILY 12/05/16 07/24/18 Pedi Multivit No.19/Folic Acid 400 mcg PO DAILY 07/24/18 07/24/18 [Children's Multi-Vit Gummies] Previous Rx's Medication Instructions Recorded Hydrocodone/Acetaminophen [[place] 1 - 2 each PO Q4HR PRN #15 tab 07/26/18 5-325] Allergies Allergy/AdvReac Type Severity Reaction Status Date / Time No Known Allergies Allergy Verified 08/16/18 21:18 Review of Systems ROS Statement: Those systems with pertinent positive or pertinent negative responses have been documented in the HPI. ROS Other: All systems not noted in ROS Statement are negative. Past Medical History Past Medical History: GERD/Reflux Additional Past Medical History / Comment(s): colitis, past ulcers History of Any Multi-Drug Resistant Organisms: None Reported Past Surgical History: Appendectomy, Back Surgery Additional Past Surgical History / Comment(s): (L) elbow surgery has metal in place. bilateral carpal tunnel surgery. Past Anesthesia/Blood Transfusion Reactions: No Reported Reaction Past Psychological History: No Psychological Hx Reported Smoking Status: Never smoker - Past Family History Mother Additional Family Medical History / Comment(s): open heart surgery Father Family Medical History: Myocardial Infarction ([place]) General Exam Limitations: no limitations General appearance: alert, in no apparent distress Head exam: Present: atraumatic, normocephalic, normal inspection Respiratory exam: Present: normal lung sounds bilaterally. Absent: respiratory distress, wheezes, rales, rhonchi, stridor Cardiovascular Exam: Present: regular rate, normal rhythm, normal heart sounds. Absent: systolic murmur, diastolic murmur, rubs, gallop, clicks Extremities exam: Present: other (Right heel there is moderate tenderness with palpation which is pinpoint there is no metatarsal tenderness there is no malleoli tenderness.) Back exam: Present: full ROM. Absent: tenderness, vertebral tenderness Course Vital Signs 08/16/18 21:15 Temperature 97.8 F Pulse Rate 81 Respiratory 16 Rate Blood Pressure 130/87 O2 Sat by Pulse 97 Oximetry Medical Decision Making - Medical Decision Making 47-year-old male present emergency department for right heel pain. X-ray and CT were obtained no acute fracture. Patient will be discharged return parameters were discussed. Disposition Clinical Impression: Fall, Contusion of right heel Disposition: HOME SELF-CARE Condition: Stable Instructions: Foot Contusion (ED) Additional Instructions: Please return to the Emergency Department if symptoms worsen or any other concerns. Is patient prescribed a controlled substance at d/c from ED?: No Referrals: Genevieve Kenyon MD [Primary Care Provider] - 1-2 days Time of Disposition: 23:00
--- NOTE | 2018-08-16 22:53 | CT ---
EXAMINATION TYPE: CT foot RT wo con DATE OF EXAM: 08/16/2018 COMPARISON: None HISTORY: right foot pain following fall from ladder CT DLP: 130.1 mGycm Automated exposure control for dose reduction was used. FINDINGS: Multiple axial sections were obtained from the distal tibia to the bottom of the foot no contrast. There is accessory ossicle in the posterior talus. The talus appears intact. The calcaneus appears in tact. There is small plantar calcaneal spur. The metatarsals appear intact. The tarsal bones appear i ntact. There is no evidence of a soft tissue mass. There is no pathologic fluid collection. There are small degenerative cysts in the distal first metatarsal. IMPRESSION: SMALL PLANTAR CALCANEAL SPUR. NO FRACTURE SEEN.
== END 2018-08-16 23:12 | disposition home or self-care (01) ==
LOC: EC 21:07
DX: S90.31XA Contusion of right foot, initial encounter (principal); K21.9 Gastro-esophageal reflux disease without esophagitis; Z79.899 Other long term (current) drug therapy; W11.XXXA Fall on and from ladder, initial encounter; Y92.69 Other specified industrial and construction area as the place of occurrence of the external cause
CPT/HCPCS: 99284

== ENCOUNTER → 2019-04-06 | Outpatient (CLI) | payer MEDICAID ==
--- NOTE | 2019-04-09 10:33 | US ---
EXAMINATION TYPE: US axilla RT, US axilla LT DATE OF EXAM: 04/06/2019 COMPARISON: None CLINICAL HISTORY: 48-year-old male R22.9 mass and lump. Prominent anterior skin/palpable area in mak ateral axilla, right side greater than left axilla, noted x 2 weeks; exercises frequently TECHNIQUE: Targeted ultrasound examination along the anterior axilla on both sides at the site of pat ient directed concern. FINDINGS: Right: No solid mass seen at anterior skin area of concern. Possible more prominent muscle is noted on right side compared to left. Deep right axillary nodes are noted inferior to right palpable with larger node = 1.3 x 1.0 x 0.9cm. Left: Possible prominent muscle is noted at patient's area of concern at anterior left axilla. IMPRESSION: 1. Some prominent tissue is noted anteriorly along the axilla on both sides at the site of patient's concern, right greater than left. Overall echogenicity seems to resemble musculature. 2. No discrete fluid collection is identified. However, if there is persistent concern for pectoralis major tear, patient can be referred to a site which routinely performs MSK ultrasound. Alternatively , MRI of the pectoralis can be considered.
== END | disposition home or self-care (01) ==
LOC: RADUSWWP 10:43
PROVIDERS: ATTEND Family Medicine
DX: R22.9 Localized swelling, mass and lump, unspecified (principal)

== ENCOUNTER → 2019-05-08 | Outpatient (CLI) | payer MEDICAID ==
--- NOTE | 2019-05-09 13:29 | MR ---
EXAMINATION TYPE: MR chest wo con DATE OF EXAM: 05/08/2019 COMPARISON: Ultrasound 04/06/2019 HISTORY: Pain and swelling mak armpits Standard multiplanar, multisequence MRI departmental protocol Multiplanar, multisequence images of the chest were acquired. FINDINGS: Exam limited by motion artifact Visualized lungs are clear and the heart size is prominent. Visualized portions of liver is homogeneo us signal. Pectoral muscles appear symmetric in size. No contrast was administered. Assessment for mass limited. No finding seen to correspond to the ultrasound abnormality. Shotty lymph nodes in the axilla incide ntally noted. IMPRESSION: Severely limited exam demonstrates no definite no abnormality concordant with the sonographic finding s. The exam was limited due to motion and artifact. Follow-up CT of the chest could be obtained with contrast as clinically warranted given the limitation of the exam or Followup ultrasound if interval growth. No definite masses seen on today's exam.
== END | disposition home or self-care (01) ==
LOC: RADMRIMAIN 09:27
PROVIDERS: ATTEND Family Medicine
DX: S29.011A Strain of muscle and tendon of front wall of thorax, initial encounter (principal)
CPT/HCPCS: 71550

== ENCOUNTER → 2019-11-24 | Outpatient (CLI) | payer MEDICAID ==
[2019-11-24 10:17] LABS: Basophils # (A) 0.3 k/uL (0-0.2); Basophils % (A) 3 %; Eosinophils # (A) 0.4 k/uL (0-0.7); Eosinophils % (A) 5 %; HGB 18.6 gm/dL (13.0-17.5); Lymphocytes # (A) 2.3 k/uL (1.0-4.8); Lymphocytes % (A) 27 %; MCH 28.1 pg (25.0-35.0); MCHC 31.8 g/dL (31.0-37.0); MCV 88.5 fL (80.0-100.0); Mean Platelet Volume 6.9; Monocytes # (A) 0.7 k/uL (0-1.0); Monocytes % (A) 8 %; Neutrophils # (A) 4.9 k/uL (1.3-7.7); Neutrophils % (A) 56 %; Platelet Count 361 k/uL (150-450); RBC 6.62 m/uL (4.30-5.90); RDW 14.9 % (11.5-15.5); WBC 8.7 k/uL (3.8-10.6)
[2019-11-24 10:51] LABS: HCT 58.6 % (39.0-53.0)
[2019-11-24 14:53] LABS: Erythrocyte Sedimentation Rate 2 mm/hr (0-15)
[2019-11-24 17:28] LABS: Amylase 37 U/L (23-121); C Reactive Protein <0.4 mg/dL (0.0-0.8)
[2019-11-24 17:29] LABS: ALT 60 U/L (10-49); AST 39 U/L (14-35); African American GFR (CKD) 75.3 (60.0-200.0); Albumin/Globulin Ratio 2.24 (1.60-3.17); Alkaline Phosphatase 64 U/L (41-126); BUN/Creat Ratio 17.69 Ratio (12.00-20.00); Calcium 9.8 mg/dL (8.7-10.3); Carbon Dioxide 29.2 mmol/L (21.6-31.8); Chloride 105 mmol/L (96-109); Globulin 2.1 g/dL (1.6-3.3); Glucose 77 mg/dL (70-110); Potassium 4.6 mmol/L (3.5-5.5); Sodium 141 mmol/L (135-145); Total Bilirubin 0.6 mg/dL (0.3-1.2); Total Protein 6.8 g/dL (6.2-8.2)
== END | disposition home or self-care (01) ==
LOC: LABWHC1 09:48
PROVIDERS: ATTEND Internal Medicine
DX: R19.7 Diarrhea, unspecified (principal); R10.9 Unspecified abdominal pain
CPT/HCPCS: 36415; 80053; 82150; 83630; 83690; 83993; 84439; 84443; 85025; 85652; 86140; 87045; 87046; 87324; 87328; 87329

== ENCOUNTER 2019-12-06 08:08 | Day surgery (SDC) | payer MEDICAID ==
[2019-12-03 17:37] VITALS: BMI 38.7
[~2019-12-06 08:08] MED LIST: LACTATED RINGERS 1,000 ML IV SCH; LIDOCAINE 1% 20 ML VIAL (10MG/ML) FOR IV START INTRADERMA PRN
[2019-12-06] MEDS ORDERED: PROPOFOL 10 MG/ML 20 ML VIAL IV ONE (09:07)
--- NOTE | 2019-12-06 09:56 | P.PCN ---
Date of Procedure: 12/06/19 Description of Procedure: Brief history: The patient is a pleasant 49-year-old male who presented to the outpatient clinic with complaints of altered bowel function, epigastric pain and history of reflux and is seen for EGD and colonoscopy in evaluation of the symptoms. Procedure performed: Esophagogastroduodenoscopy with biopsy Colonoscopy Estimated blood loss: Minimal. Preoperative diagnosis: Epigastric abdominal pain, change in bowel habits Anesthesia: MAC Procedure: After informed consent was obtained from the patient was brought into the endoscopy unit and IV sedation was administered by anesthesia under continuous monitoring. Initially upper endoscopy was done. The Olympus GF 190 video endoscope was inserted into the mouth and esophagus intubated without any difficulty and was gradually advanced into the stomach and duodenum and carefully examined. The bulb and second part of the duodenum appeared normal, with biopsies taken. The scope was then withdrawn into the stomach adequately insufflated with air and upon careful examination the antrum and body, cardia and fundus appeared normal, except for some mild scattered erythema in the antrum and body suggestive of mild gastritis with biopsies taken. The scope was then withdrawn into the esophagus. The GE junction was located at 36 cm to the incisors with biopsies taken. There was a widely patent Schatzki's ring in the distal esophagus. It appeared regular with no erythema erosions or ulcerations. Rest of the esophagus appeared normal. Mid esophageal biopsies were also taken during prior history of eosinophilic esophagitis. Patient tolerated the procedure well. At this time the patient continued to remain sedation. Initial digital rectal examination was normal. Olympus CF 190 video colonoscope was then inserted into the rectum and gradually advanced to the cecum without any difficulty. Careful examination was performed as the scope was gradually being withdrawn. The prep was excellent. The cecum, ascending colon, transverse colon, descending colon, sigmoid colon and rectum appeared normal, with biopsies of recurrent left colon taken the setting of altered bowel function. Terminal ileum was also intubated and appeared normal with biopsies taken. Retroflexion was performed in the rectum and no lesions were noted. Patient tolerated the procedure well. Impression: 1. Mild gastritis antrum body, biopsied. Biopsies of the GE junction, midesophagus and duodenum. Widely patent distal esophageal Schatzki's ring. 2. Normal-appearing colon from rectum to cecum with normal-appearing terminal ileum. Random biopsies taken of the right colon, left colon and terminal ileum. Recommendations: Findings of this examination were discussed with the patient as well as his . Okay to resume diet. Okay to resume medication. Await pathology from biopsies. Follow up in the gastroenterology clinic as previously scheduled. Would recommend repeat colonoscopy in 10 years for screening purposes or sooner if signs or symptoms which warrants further evaluation develop.
[2019-12-06 10:11] VITALS: BP 131/64; PULSE 81; RESP 16
== END 2019-12-06 10:49 | disposition home or self-care (01) ==
LOC: ORWHC2ENDO 08:08
PROVIDERS: ATTEND Internal Medicine
DX: K29.50 Unspecified chronic gastritis without bleeding (principal); K31.9 Disease of stomach and duodenum, unspecified; K21.0 Gastro-esophageal reflux disease with esophagitis; K63.89 Other specified diseases of intestine; K52.9 Noninfective gastroenteritis and colitis, unspecified; K22.2 Esophageal obstruction; I10 Essential (primary) hypertension; G47.33 Obstructive sleep apnea (adult) (pediatric); Z90.49 Acquired absence of other specified parts of digestive tract; Z98.890 Other specified postprocedural states; Z79.899 Other long term (current) drug therapy; Z79.890 Hormone replacement therapy
CPT/HCPCS: 88305; 45380; 43239; J2704

== ENCOUNTER → 2020-06-05 | Outpatient (CLI) | payer MEDICAID ==
[2020-06-05 10:58] LABS: HCT 53.7 % (39.0-53.0); HGB 18.1 gm/dL (13.0-17.5); MCH 29.7 pg (25.0-35.0); MCHC 33.7 g/dL (31.0-37.0); MCV 88.4 fL (80.0-100.0); Mean Platelet Volume 6.5; Platelet Count 308 k/uL (150-450); RBC 6.08 m/uL (4.30-5.90); RDW 12.9 % (11.5-15.5); WBC 7.4 k/uL (3.8-10.6)
[2020-06-05 16:56] LABS: Prolactin 3.3 ng/mL (2.1-17.7)
[2020-06-05 16:57] LABS: Follicle Stimulating Hormone 3.5 mIU/mL
[2020-06-05 17:05] LABS: Prostate Specific Antigen 1.2 ng/mL (0.0-2.5)
== END | disposition home or self-care (01) ==
LOC: LABWHC1 10:04
PROVIDERS: ATTEND Internal Medicine
DX: Z12.5 Encounter for screening for malignant neoplasm of prostate (principal); E29.1 Testicular hypofunction
CPT/HCPCS: 36415; 83001; 83002; 84146; 84153; 84402; 84403; 85027

== ENCOUNTER → 2020-10-08 | Outpatient (CLI) | payer MEDICAID ==
[2020-10-08 08:42] LABS: HCT 51.3 % (39.0-53.0); HGB 17.5 gm/dL (13.0-17.5); MCH 29.8 pg (25.0-35.0); MCHC 34.1 g/dL (31.0-37.0); MCV 87.5 fL (80.0-100.0); Mean Platelet Volume 6.6; Platelet Count 303 k/uL (150-450); RBC 5.86 m/uL (4.30-5.90); WBC 9.2 k/uL (3.8-10.6)
[2020-10-08 15:02] LABS: Prolactin 5.4 ng/mL (2.1-17.7)
[2020-10-08 15:03] LABS: Follicle Stimulating Hormone 5.2 mIU/mL; Luteinizing Hormone 3.3 mIU/mL
== END | disposition home or self-care (01) ==
LOC: LABWHC1 08:01
PROVIDERS: ATTEND Internal Medicine
DX: E29.1 Testicular hypofunction (principal)
CPT/HCPCS: 36415; 83001; 83002; 84146; 84402; 84403; 85027

== ENCOUNTER → 2020-12-31 | Outpatient (CLI) | payer MEDICAID ==
[2020-12-31 15:41] LABS: HCT 53.3 % (39.6-50.0); HGB 17.1 g/dL (13.0-17.0); MCH 28.9 pg (27.0-32.0); MCHC 32.1 g/dL (32.0-37.0); MCV 90.2 fL (80.0-97.0); Mean Platelet Volume 9.8 fL (9.5-12.2); Platelet Count 305 X 10*3/uL (140-440); RBC 5.91 X 10*6/uL (4.40-5.60); RDW 13.2 % (11.5-14.5); WBC 7.12 X 10*3/uL (4.50-10.00)
[2020-12-31 19:08] LABS: Follicle Stimulating Hormone 6.4 mIU/mL; Luteinizing Hormone 3.2 mIU/mL; Prolactin 5.6 ng/mL (2.1-17.7)
== END | disposition home or self-care (01) ==
LOC: LABWHC1 08:44
PROVIDERS: ATTEND Internal Medicine
DX: E29.1 Testicular hypofunction (principal)
CPT/HCPCS: 36415; 83001; 83002; 84146; 84402; 84403; 85027

== ENCOUNTER → 2021-03-31 | Outpatient (CLI) | payer MEDICAID ==
[2021-03-31 16:31] LABS: HCT 50.1 % (39.6-50.0); HGB 16.5 g/dL (13.0-17.0); MCH 28.1 pg (27.0-32.0); MCHC 32.9 g/dL (32.0-37.0); MCV 85.3 fL (80.0-97.0); Mean Platelet Volume 9.6 fL (9.5-12.2); Platelet Count 328 X 10*3/uL (140-440); RBC 5.87 X 10*6/uL (4.40-5.60); RDW 13.2 % (11.5-14.5); WBC 8.39 X 10*3/uL (4.50-10.00)
== END | disposition home or self-care (01) ==
LOC: LABWHC1 09:14
PROVIDERS: ATTEND Internal Medicine
DX: E29.1 Testicular hypofunction (principal); D75.1 Secondary polycythemia
CPT/HCPCS: 36415; 84402; 84403; 85027

== ENCOUNTER → 2021-06-29 | Outpatient (CLI) | payer MEDICAID ==
[2021-06-29 14:51] LABS: HCT 51.7 % (39.6-50.0); HGB 16.8 g/dL (13.0-17.0); MCH 28.6 pg (27.0-32.0); MCHC 32.5 g/dL (32.0-37.0); MCV 87.9 fL (80.0-97.0); Mean Platelet Volume 9.5 fL (9.5-12.2); Platelet Count 317 X 10*3/uL (140-440); RBC 5.88 X 10*6/uL (4.40-5.60); RDW 13.7 % (11.5-14.5); WBC 9.24 X 10*3/uL (4.50-10.00)
== END | disposition home or self-care (01) ==
LOC: LABWHC1 08:06
PROVIDERS: ATTEND Internal Medicine
DX: E29.1 Testicular hypofunction (principal)
CPT/HCPCS: 36415; 84402; 84403; 85027

== ENCOUNTER → 2021-10-19 | Outpatient (CLI) | payer MEDICAID ==
[2021-10-19 11:00] LABS: HGB 16.6 g/dL (13.0-17.0); MCH 28.2 pg (27.0-32.0); MCHC 32.5 g/dL (32.0-37.0); MCV 86.6 fL (80.0-97.0); Mean Platelet Volume 9.2 fL (9.5-12.2); Platelet Count 292 X 10*3/uL (140-440); RBC 5.89 X 10*6/uL (4.40-5.60); RDW 13.9 % (11.5-14.5); WBC 7.18 X 10*3/uL (4.50-10.00)
[2021-10-19 11:47] LABS: Prostate Specific Antigen 1.3 ng/mL (0.00-2.50)
== END | disposition home or self-care (01) ==
LOC: LABWHC1 08:06
PROVIDERS: ATTEND Internal Medicine
DX: Z12.5 Encounter for screening for malignant neoplasm of prostate (principal); E29.1 Testicular hypofunction
CPT/HCPCS: 36415; 84153; 84402; 84403; 85027

== ENCOUNTER 2021-12-29 20:08 | Emergency (ER) | payer MEDICAID ==
[2021-12-29 20:16] VITALS: TEMP 98.5
[2021-12-29 20:46] LABS: Appearance,Urine Clear (Clear); Bacteria,Urine Rare /hpf; Bilirubin,Urine Negative (Negative); Blood,Urine Negative (Negative); Color,Urine Yellow; Glucose,Urine (UA) Negative (Negative); Ketones,Urine Trace (Negative); Leukocyte Esterase,Urine Trace (Negative); Mucus,Urine Rare /hpf; Nitrite,Urine Negative (Negative); PH, Urine 5.5 (5.0-8.0); Protein,Urine Trace (Negative); RBC,Urine 1 /hpf (0-5); Urobilinogen,Urine <2.0 mg/dL (<2.0); WBC,Urine 4 /hpf (0-5)
[2021-12-29] MEDS ORDERED: ONDANSETRON 4 MG/2 ML VIAL IVP STA (23:24)
[2021-12-29] MEDS ORDERED: MORPHINE SULFATE 4 MG/ML SYRINGE IV STA (23:24)
[2021-12-29] MEDS ORDERED: SODIUM CHLORIDE 0.9% 1,000 ML IV ONE (23:27)
[2021-12-30 00:05] LABS: Albumin 4.7 g/dL (3.5-5.0); Calcium 9.5 mg/dL (8.4-10.2); Total Bilirubin 0.9 mg/dL (0.2-1.3); Total Protein 7.8 g/dL (6.3-8.2)
--- NOTE | 2021-12-30 00:07 | ED ---
Abdominal Pain HPI - General Chief Complaint: Abdominal Pain Stated Complaint: Abd pain Time Seen by Provider: 12/29/21 22:43 Source: patient Mode of arrival: ambulatory Limitations: no limitations - History of Present Illness Initial Comments: Patient is a 51-year-old male presenting with chief complaint of abdominal pain. Pain began 2 days ago and is located in left lower quadrant. It is a constant sharp pain is worse with deep breath. It is unchanged by food the patient states that he does not feel the urge to eat due to the pain. Pain is unchanged by position or exertion. He denies any symptomatic treatment at home. Surgical history includes appendectomy and cholecystectomy. PMH of polycythemia. Patient admits to nausea, chills. Denies vomiting, diarrhea, constipation, fever, dysuria, urgency, frequency, flank pain, chest pain, shortness of breath. MD Complaint: abdominal pain, other (Left Lower quadrant pain) - Related Data Home Medications Medication Instructions Recorded Confirmed Pantoprazole Sodium 40 mg PO DAILY 12/05/16 12/29/21 Ascorbic Acid [Vitamin C] 500 mg PO DAILY 12/03/19 12/29/21 Cholecalciferol [Vitamin D3 (25 25 mcg PO DAILY 12/29/21 12/29/21 Mcg = 1000 Iu)] Cholestyramine (with Sugar) 4 gm PO DAILY 12/29/21 12/29/21 [Cholestyramine Powder] Multivitamins, Thera [Multivitamin 1 tab PO DAILY 12/29/21 12/29/21 (formulary)] Testosterone Cypionate 200 mg IM Q14D 12/29/21 12/29/21 [Depo-Testosterone] Zinc 50 mg PO DAILY 12/29/21 12/29/21 Previous Rx's Medication Instructions Recorded Ciprofloxacin HCl [Cipro] 500 mg PO BID 10 Days #19 tab 12/30/21 metroNIDAZOLE [Flagyl] 500 mg PO TID 10 Days #29 tab 12/30/21 Allergies Allergy/AdvReac Type Severity Reaction Status Date / Time No Known Allergies Allergy Verified 12/29/21 23:49 Review of Systems ROS Statement: Those systems with pertinent positive or pertinent negative responses have been documented in the HPI. ROS Other: All systems not noted in ROS Statement are negative. Past Medical History Past Medical History: GERD/Reflux, Hyperlipidemia, Hypertension Additional Past Medical History / Comment(s): Colitis, past ulcers, no medications for hypertension, hyperlipidemia. History of Any Multi-Drug Resistant Organisms: None Reported Past Surgical History: Appendectomy, Back Surgery, Cholecystectomy, Orthopedic Surgery Additional Past Surgical History / Comment(s): (L) elbow surgery has metal in place, bilateral carpal tunnel surgery. Past Anesthesia/Blood Transfusion Reactions: No Reported Reaction Past Psychological History: No Psychological Hx Reported Smoking Status: Never smoker Past Alcohol Use History: Occasional Past Drug Use History: None Reported - Past Family History Mother Additional Family Medical History / Comment(s): open heart surgery Father Family Medical History: Myocardial Infarction (NM) General Exam Limitations: no limitations General appearance: alert, in no apparent distress Head exam: Present: atraumatic, normocephalic, normal inspection Eye exam: Present: normal appearance, PERRL, EOMI. Absent: scleral icterus, conjunctival injection, periorbital swelling ENT exam: Present: normal exam, mucous membranes moist Neck exam: Present: normal inspection Respiratory exam: Present: normal lung sounds bilaterally. Absent: respiratory distress, wheezes, rales, rhonchi, stridor Cardiovascular Exam: Present: regular rate, normal rhythm, normal heart sounds. Absent: systolic murmur, diastolic murmur, rubs, gallop, clicks GI/Abdominal exam: Present: soft, tenderness, guarding, normal bowel sounds. Absent: distended, rebound, rigid Neurological exam: Present: alert, oriented X3, CN II-XII intact Psychiatric exam: Present: normal affect, normal mood Skin exam: Present: warm, dry, intact, normal color. Absent: rash Course Vital Signs 12/29/21 12/30/21 20:13 00:55 Temperature 98.5 F Pulse Rate 83 70 Respiratory 20 16 Rate Blood Pressure 113/72 137/93 O2 Sat by Pulse 96 98 Oximetry Medical Decision Making - Medical Decision Making Patient is a 51-year-old male presenting with chief complaint of abdominal pain. Pain has been constant for 2 days located in the left lower quadrant. Admits to nausea and chills. Denies vomiting, diarrhea, constipation, fever, dysuria, chest pain, shortness of breath. On exam there is tenderness and guarding on the left side of the abdomen and normal bowel sounds. Abdomen is soft and nondistended. Lab studies show elevated white count of 12, hematocrit of 57, and hemoglobin of 19. Likely due to hx of polycythemia, which is being followed by his PCP, and pt admitting to not intaking adequate fluids today. CT of abdomen with contrast shows area of fat stranding and inflammatory changes anterior to the mid descending colon that is nonspecific. Patient treated for diverticulitis. Outpatient tmt consisting of metronidazole 500mg TID and ciprofloxacin 500mg BID. Follow up with PCP in 1-2 days. Take medication as prescribed. Answered all questions. Report back to ER with worsening symptoms or new onset alarming symptoms such as fever, vomiting, blood in stool or emesis. Patient conveyed verbal understanding and agreed to the plan. I discussed case with the attending Dr. Toure. - Lab Data Result diagrams: 12/29/21 23:47 12/29/21 23:47 Lab Results 12/29/21 12/29/21 12/29/21 Range/Units 20:22 23:47 23:47 WBC 12.0 H (3.8-10.6) k/uL RBC 6.38 H (4.30-5.90) m/uL Hgb 19.0 H (13.0-17.5) gm/dL Hct 57.7 H* (39.0-53.0) % MCV 90.4 (80.0-100.0) fL MCH 29.7 (25.0-35.0) pg MCHC 32.9 (31.0-37.0) g/dL RDW 14.5 (11.5-15.5) % Plt Count 310 (150-450) k/uL MPV 6.9 Neutrophils % 71 % Lymphocytes % 17 % Monocytes % 8 % Eosinophils % 2 % Basophils % 1 % Neutrophils # 8.4 H (1.3-7.7) k/uL Lymphocytes # 2.0 (1.0-4.8) k/uL Monocytes # 0.9 (0-1.0) k/uL Eosinophils # 0.3 (0-0.7) k/uL Basophils # 0.1 (0-0.2) k/uL Sodium 140 (137-145) mmol/L Potassium 4.6 (3.5-5.1) mmol/L Chloride 104 (98-107) mmol/L Carbon Dioxide 26 (22-30) mmol/L Anion Gap 10 mmol/L BUN 25 H (9-20) mg/dL Creatinine 1.24 (0.66-1.25) mg/dL Est GFR (CKD-EPI)AfAm 79 (>60 ml/min/1.73 sqM) Est GFR (CKD-EPI)NonAf 68 (>60 ml/min/1.73 sqM) Glucose 105 H (74-99) mg/dL Plasma Lactic Acid Miko (0.7-2.0) mmol/L Calcium 9.5 (8.4-10.2) mg/dL Total Bilirubin 0.9 (0.2-1.3) mg/dL AST 44 (17-59) U/L ALT 50 H (4-49) U/L Alkaline Phosphatase 61 (38-126) U/L Total Protein 7.8 (6.3-8.2) g/dL Albumin 4.7 (3.5-5.0) g/dL Amylase 52 (30-110) U/L Lipase 125 (23-300) U/L Urine Color Yellow Urine Appearance Clear (Clear) Urine pH 5.5 (5.0-8.0) Ur Specific [place] 1.030 (1.001-1.035) Urine Protein Trace H (Negative) Urine Glucose (UA) Negative (Negative) Urine Ketones Trace H (Negative) Urine Blood Negative (Negative) Urine Nitrite Negative (Negative) Urine Bilirubin Negative (Negative) Urine Urobilinogen <2.0 (<2.0) mg/dL Ur Leukocyte Esterase Trace H (Negative) Urine RBC 1 (0-5) /hpf Urine WBC 4 (0-5) /hpf Urine Bacteria Rare H (None) /hpf Urine Mucus Rare H (None) /hpf 12/30/21 Range/Units 00:19 WBC (3.8-10.6) k/uL RBC (4.30-5.90) m/uL Hgb (13.0-17.5) gm/dL Hct (39.0-53.0) % MCV (80.0-100.0) fL MCH (25.0-35.0) pg MCHC (31.0-37.0) g/dL RDW (11.5-15.5) % Plt Count (150-450) k/uL MPV Neutrophils % % Lymphocytes % % Monocytes % % Eosinophils % % Basophils % % Neutrophils # (1.3-7.7) k/uL Lymphocytes # (1.0-4.8) k/uL Monocytes # (0-1.0) k/uL Eosinophils # (0-0.7) k/uL Basophils # (0-0.2) k/uL Sodium (137-145) mmol/L Potassium (3.5-5.1) mmol/L Chloride (98-107) mmol/L Carbon Dioxide (22-30) mmol/L Anion Gap mmol/L BUN (9-20) mg/dL Creatinine (0.66-1.25) mg/dL Est GFR (CKD-EPI)AfAm (>60 ml/min/1.73 sqM) Est GFR (CKD-EPI)NonAf (>60 ml/min/1.73 sqM) Glucose (74-99) mg/dL Plasma Lactic Acid Miko 0.8 (0.7-2.0) mmol/L Calcium (8.4-10.2) mg/dL Total Bilirubin (0.2-1.3) mg/dL AST (17-59) U/L ALT (4-49) U/L Alkaline Phosphatase (38-126) U/L Total Protein (6.3-8.2) g/dL Albumin (3.5-5.0) g/dL Amylase (30-110) U/L Lipase (23-300) U/L Urine Color Urine Appearance (Clear) Urine pH (5.0-8.0) Ur Specific [place] (1.001-1.035) Urine Protein (Negative) Urine Glucose (UA) (Negative) Urine Ketones (Negative) Urine Blood (Negative) Urine Nitrite (Negative) Urine Bilirubin (Negative) Urine Urobilinogen (<2.0) mg/dL Ur Leukocyte Esterase (Negative) Urine RBC (0-5) /hpf Urine WBC (0-5) /hpf Urine Bacteria (None) /hpf Urine Mucus (None) /hpf - Radiology Data Radiology results: report reviewed CT of abdomen with contrast shows area of fat stranding and inflammatory changes anterior to the mid descending colon that is nonspecific. Disposition Clinical Impression: Diverticulitis Disposition: HOME SELF-CARE Condition: Good Instructions (If sedation given, give patient instructions): Diverticulitis (DC) Additional Instructions: Take medication as prescribed. Follow-up with PCP. Report back to ER with worsening symptoms or new onset alarming symptoms, including but not limited to blood in the stool or vomit, fever, vomiting, inability to tolerate liquids. Prescriptions: Ciprofloxacin HCl [Cipro] 500 mg PO BID 10 Days #19 tab metroNIDAZOLE [Flagyl] 500 mg PO TID 10 Days #29 tab Is patient prescribed a controlled substance at d/c from ED?: No Referrals: Genevieve Kenyon MD [Primary Care Provider] - 1-2 days Time of Disposition: 01:39
[2021-12-30 00:09] LABS: Potassium 4.6 mmol/L (3.5-5.1)
--- NOTE | 2021-12-30 00:21 | CT ---
EXAMINATION TYPE: CT abdomen pelvis w con DATE OF EXAM: 12/30/2021 COMPARISON: 07/24/2018 HISTORY: LLQ pain CT DLP: 1226.2 mGycm Automated exposure control for dose reduction was used. CONTRAST: Performed with IV Contrast, patient injected with 100 mL of Isovue 300. The lung bases are clear of infiltrate. There is no pleural effusion. Heart size is normal. There is no pericardial effusion. There are clips from cholecystectomy. Liver spleen stomach pancreas appear intact. The bowel is not d ilated. There is no adrenal mass. Kidneys show satisfactory contrast opacification. There is no hydronephrosis. Bladder distends smooth ly. There is no inguinal hernia. There is no free fluid in the pelvis. There is no evidence of pelvic mass. Small bowel pattern is fairly normal. There is no evidence of a bowel obstruction. There are s ome mild sigmoid diverticula. There is some fat stranding anterior to the mid descending colon. There is no free air. There is no a scites. The lumbar vertebra have normal alignment. There is no compression fracture. Bony pelvis is intact. T he hip joints are intact. IMPRESSION: There is a 3.5 x 2 cm area of fat stranding and inflammatory changes anterior to the mid descending c olon that is nonspecific. The adjacent colon does not show any wall thickening. The adjacent small jazlyn wel also no wall thickening. This could be the residual of some focal colitis. Abnormality is new com pared to the old exam.
[2021-12-30 00:24] LABS: Basophils # (A) 0.1 k/uL (0-0.2); Basophils % (A) 1 %; Eosinophils # (A) 0.3 k/uL (0-0.7); Eosinophils % (A) 2 %; Lymphocytes % (A) 17 %; MCH 29.7 pg (25.0-35.0); MCHC 32.9 g/dL (31.0-37.0); MCV 90.4 fL (80.0-100.0); Mean Platelet Volume 6.9; Monocytes # (A) 0.9 k/uL (0-1.0); Monocytes % (A) 8 %; Neutrophils # (A) 8.4 k/uL (1.3-7.7); Neutrophils % (A) 71 %; Platelet Count 310 k/uL (150-450); RBC 6.38 m/uL (4.30-5.90); RDW 14.5 % (11.5-15.5)
[2021-12-30 00:32] LABS: HCT 57.7 % (39.0-53.0)
[2021-12-30 00:56] VITALS: BP 137/93; PULSE 70; RESP 16
[2021-12-30] MEDS ORDERED: metroNIDAZOLE 500 MG TAB PO STA (01:27)
[2021-12-30] MEDS ORDERED: CIPROFLOXACIN HCL 500 MG TAB PO STA (01:28)
== END 2021-12-30 01:49 | disposition home or self-care (01) ==
LOC: EC 20:08
DX: K57.32 Diverticulitis of large intestine without perforation or abscess without bleeding (principal); I10 Essential (primary) hypertension; E78.5 Hyperlipidemia, unspecified; K21.9 Gastro-esophageal reflux disease without esophagitis; Z79.899 Other long term (current) drug therapy
CPT/HCPCS: 36415 ×2; 80053; 82150; 83605; 83690; 85025; 81001; 74177; 99284; 96374; 96375; 96361 ×2; J2270; J2405; Q9967

== ENCOUNTER → 2022-02-09 | Outpatient (CLI) | payer MEDICAID ==
[2022-02-09 10:44] LABS: HGB 18.1 g/dL (13.0-17.0); MCH 27.9 pg (27.0-32.0); MCHC 31.8 g/dL (32.0-37.0); Mean Platelet Volume 9.1 fL (9.5-12.2); NRBC Per 100 WBC 0 /100 WBCS (0.0-0.0); Platelet Count 288 X 10*3/uL (140-440); RBC 6.48 X 10*6/uL (4.40-5.60); RDW 14.1 % (11.5-14.5); WBC 9.26 X 10*3/uL (4.50-10.00)
== END | disposition home or self-care (01) ==
LOC: LABWHC1 07:45
PROVIDERS: ATTEND Internal Medicine
DX: E29.1 Testicular hypofunction (principal); E55.9 Vitamin D deficiency, unspecified
CPT/HCPCS: 36415; 82306; 84402; 84403; 85027

== ENCOUNTER → 2022-08-12 | Outpatient (CLI) | payer MEDICAID ==
[2022-08-12 14:57] LABS: HCT 49.3 % (39.6-50.0); HGB 16.5 g/dL (13.0-17.0); MCH 27.9 pg (27.0-32.0); MCHC 33.5 g/dL (32.0-37.0); MCV 83.4 fL (80.0-97.0); Mean Platelet Volume 9.4 fL (9.5-12.2); NRBC Per 100 WBC 0 /100 WBCS (0.0-0.0); Platelet Count 316 X 10*3/uL (140-440); RBC 5.91 X 10*6/uL (4.40-5.60); RDW 13.8 % (11.5-14.5); WBC 8.85 X 10*3/uL (4.50-10.00)
== END | disposition home or self-care (01) ==
LOC: LABWHC1 09:53
PROVIDERS: ATTEND Internal Medicine
DX: E29.1 Testicular hypofunction (principal); D75.1 Secondary polycythemia; R63.5 Abnormal weight gain
CPT/HCPCS: 36415; 84402; 84403; 85027